=== PATIENT | female | born 1955 | race Caucasian/White ===

== ENCOUNTER 2016-07-18 00:30 | Emergency (ER) | payer OTHER ==
[~2016-07-18] VITALS: Ht 162.6 cm; Wt 156.9 kg
[2016-07-18 00:36] VITALS: BP 207/102
--- NOTE | 2016-07-18 00:45 | NUR ---
Dr. Walker evaluating patient
--- NOTE | 2016-07-18 00:49 | NUR ---
PT TAKEN TO BED 5
--- NOTE | 2016-07-18 01:13 | NUR ---
PATIENT PRESENTS TO ED WITH ENTIRE LEFT LEG PAIN . PT STATES PAIN FEELS LIKE A THROBBING SENSATION X3DAYS. PT REPORTS MED HX OF ARTHRITIS, HTN, AND ANXIETY . DENIES N/V/D; SKIN IS PINK/WARM/DRY; AAOX4 WITH EVEN AND STEADY GAIT; LUNGS CLEAR BL; HR EVEN AND REGULAR; PT DENIES ANY FEVER, CP, SOB, OR COUGH AT THIS TIME; PATIENT STATES PAIN OF 8/10 AT THIS TIME; VSS; PATIENT POSITIONED FOR COMFORT; HOB ELEVATED; BEDRAILS UP X2; BED DOWN. ER MD MADE AWARE OF PT STATUS.
[2016-07-18] MEDS ORDERED: ONDANSETRON 4 MG/2 ML VIAL IM ONE (01:25)
[2016-07-18] MEDS ORDERED: HYDROmorphone 1 MG/ML AMP IM ONE (01:25)
[2016-07-18] MEDS ORDERED: cloNIDine 0.1 MG TAB PO ONE (01:25)
[2016-07-18 03:30] VITALS: BP 165/76
--- NOTE | 2016-07-18 03:31 | NUR ---
Patient discharged with v/s stable. Written and verbal after care instructions given and explained. Patient alert, oriented and verbalized understanding of instructions. Wheel Chair Assisted with by caregiver. All questions addressed prior to discharge. ID band removed. Patient advised to follow up with PMD. Rx of TRAMADOL given. Patient educated on indication of medication including possible reaction and side effects. Opportunity to ask questions provided and answered.
== END 2016-07-18 03:31 | disposition home or self-care (01) ==
LOC: MED 00:30
DX: M17.12 Unilateral primary osteoarthritis, left knee (principal); I10 Essential (primary) hypertension
CPT/HCPCS: 96372; 99284; J1170; J2405

== ENCOUNTER 2016-07-18 22:58 | Emergency (ER) | payer OTHER ==
[~2016-07-18] VITALS: Ht 165.1 cm; Wt 154.2 kg
[2016-07-18 23:12] VITALS: BP 178/92
--- NOTE | 2016-07-18 23:23 | NUR ---
TO ER BED 2
--- NOTE | 2016-07-18 23:30 | NUR ---
61Y/F PT BIB DAUGHTER TO ED WITH C/O LT KNEE PAIN AND SWELLING, WORSENING X 3 DAYS. PT STATES HX OF HTN, ANXIETY, BILATERAL KNEE ARTHRITIS. PT TOOK TRAMADOL RX FROM ER YESTERDAY WITH NO RELIEF. PT TAKES LISINOPRIL, ATIVAN, PROZAC, NAPROXEN, VIT D AT HOME.DENIES N/V/D; SKIN IS PINK/WARM/DRY; AAOX4, UNABLE TO AMBULATE AT THIS TIME, W/C ASSIST; LUNGS CLEAR BL; HR EVEN AND REGULAR; PT DENIES ANY FEVER, CP, SOB, OR COUGH AT THIS TIME; PATIENT STATES PAIN OF 10/10 AT THIS TIME; VSS; PATIENT POSITIONED FOR COMFORT; HOB ELEVATED; BEDRAILS UP X2; BED DOWN. ER MD MADE AWARE OF PT STATUS.
[2016-07-18] MEDS ORDERED: cloNIDine 0.1 MG TAB PO ONE (23:55)
[2016-07-19] MEDS ORDERED: NACL 0.9% 1,000 ML IV ONE (00:10)
[2016-07-19] MEDS ORDERED: HYDROmorphone PFS 2 MG/ML SYR IVP ONE (00:10)
--- NOTE | 2016-07-19 00:30 | NUR ---
Patient appears to be resting comfortably in bed. Vital Signs within normal limits. Respirations even and unlabored.
[2016-07-19] MEDS ORDERED: cloNIDine 0.1 MG TAB PO ONE (02:05)
[2016-07-19 02:45] VITALS: BP 157/87
--- NOTE | 2016-07-19 02:45 | NUR ---
Patient discharged with v/s stable. Written and verbal after care instructions given and explained. Patient alert, oriented and verbalized understanding of instructions. Wheel Chair Assisted with to car. All questions addressed prior to discharge. ID band removed. Patient advised to follow up with PMD. Rx of NORCO 5/325 MG given. Patient educated on indication of medication including possible reaction and side effects. Opportunity to ask questions provided and answered.
== END 2016-07-19 02:45 | disposition home or self-care (01) ==
LOC: MED 22:58
DX: M17.0 Bilateral primary osteoarthritis of knee (principal); I10 Essential (primary) hypertension; E66.01 Morbid (severe) obesity due to excess calories; Z68.43 Body mass index [BMI] 50.0-59.9, adult
CPT/HCPCS: 36415; 80053; 85025; 85610; 85730; 93971; 96361; 96374; 99285; J1170; J7030; Q0092

== ENCOUNTER 2016-07-25 21:10 | Inpatient (IN) | payer OTHER ==
[~2016-07-25] VITALS: Ht 162.6 cm; Wt 175.5 kg
[2016-07-25 21:23] VITALS: BP 116/61
--- NOTE | 2016-07-25 21:24 | NUR ---
PT TAKEN TO BED 6
--- NOTE | 2016-07-25 21:25 | NUR ---
Dr. Walker evaluating patient at bedside.
[2016-07-25] MEDS ORDERED: NACL 0.9% 1,000 ML IV SCH (21:34)
--- NOTE | 2016-07-25 21:50 | NUR ---
X-Ray at bedside.
[2016-07-25] MEDS ORDERED: cefTRIAXone 2,000 MG in DEXTROSE 5% 100 ML IV ONE (22:35)
[2016-07-25] MEDS ORDERED: cefTRIAXone 2,000 MG VIAL ONE (23:17)
--- NOTE | 2016-07-26 02:49 | NUR ---
PT TAKEN BY [facility] TO [facility] FOR CT SCAN. MST BACKBOARD BORROWED BY EMS CREW AND TO BE RETURNED WHEN PATIENT RETURNS
--- NOTE | 2016-07-26 02:53 | NUR ---
[facility] TOOK PT TO [facility] FOR CT SCAN. PT REMAINS CONFUSED, NO DISTRESS NOTED. V/S TAKEN AND WNL. REPORT GIVEN TO MR KIM OF [facility] AND SIGNED THE TRANSFER PAPER.
--- NOTE | 2016-07-26 04:28 | NUR ---
PT RETURN FROM [place] VIA [facility]
--- NOTE | 2016-07-26 05:40 | NUR ---
PT MOVED TO BED 1
[2016-07-26] MEDS ORDERED: HYDROcodone/APAP 5/325 MG 1 TAB TAB PO PRN ×2 (05:50→06:00)
[2016-07-26] MEDS ORDERED: LORazepam 2 MG/ML VIAL IVP PRN (05:50)
[2016-07-26] MEDS ORDERED: ONDANSETRON 4 MG/2 ML VIAL IVP PRN ×2 (05:50→06:00)
[2016-07-26] MEDS ORDERED: ACETAMINOPHEN 325 MG TAB PO PRN ×2 (05:50→06:00)
[2016-07-26] MEDS ORDERED: MORPHINE SULFATE 2 MG/ML SYR IVP PRN ×2 (05:50→06:00)
--- NOTE | 2016-07-26 05:50 | NUR ---
ADMITTED A PATIENT FROM ER, TRANSPORTED VIA GURNEY ACCOMPANIED BY ER NURSE AND FAMILY MEMBER. PATIENT IS CONFUSED, V/S CHECKED AND STABLE. MRSA SWAB DONE. FAMILY MEMBER PRESENT AT BEDSIDE. IV SITE IS PATENT AND INTACT. WILL ENDORSE TO DAY SHIFT NURSE.
[2016-07-26] MEDS ORDERED: FUROSEMIDE 40 MG/4 ML VIAL IVP ONE (05:55)
[2016-07-26] MEDS ORDERED: VANCOMYCIN PER PHARMACY MC PRN ×2 (05:55→06:00)
[2016-07-26] MEDS ORDERED: FUROSEMIDE 40 MG/4 ML VIAL IVP SCH (05:55)
--- NOTE | 2016-07-26 06:00 | NUR ---
Patient will be admitted to care of DR SHAIKH. Admited to TELEMETRY. Will go to room 115. Belongings list completed. Report to PHILLY CHASE.
--- NOTE | 2016-07-26 07:35 | NUR ---
ENDORSED REPORT TO RENA KINGSLEY FOR CONTINUITY OF CARE. PT IS STABLE.
--- NOTE | 2016-07-26 07:36 | NUR ---
RECEIVED PT FROM THE OFFICE CLEANER NURSE AT BEDSIDE. SHE IS MY ADMIT FOR THIS MORNING. PT ARRIVED ON THE UNIT 0550. SHE IS ALTERED MENTAL STATUS. TWO DAUGHTERS AT BEDSIDE. SHE IS TRYING TO TAKE OFF HER GOWN, REMOVE THE TELE MONITOR, AND HER BLANKETS. PT IS VERY CONFUSED. NOTED THE IV ON R HAND 22G SL. NO FLUIDS, NOT IV PUMP IN THE ROOM. NOTED THAT SHE HAS SOME OLD SCARS AND SCAB ON HER BODY. SHE DID HAVE HER L LOWER LEG WRAPPED WITH SHANICE BANDAGE. 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 NOT WARM TO TOUCH. NO REDNESS NOTED. PT HAS A NC WHICH SHE WAS TAKING OFF. O2 AT 2L. SHE ALSO HAS A BEE CATH. DARK AYAKA URINE ABOUT 20MLS IN THE BAG. SHE IS SPEAKING THAI BUT GARBLED. EVEN THE DAUGHTERS CAN NOT UNDERSTAND WHAT SHE IS SAYING. SHE C/O OF PAIN IN HER R SHOULDER. XRAYS DONE IN ER BUT NO FRACTURE. ONLY SCREAMS WHEN ARM IS MOVED. I INTRODUCED MYSELF TO THE FAMILY. UPDATED THE BOARD. WILL BE BACK TO CONTINUE TO MONITOR PT.
--- NOTE | 2016-07-26 07:40 | NUR ---
CRITICAL LABS FOR PT: SODIUM AT 124 AND WBC AT 34.3. PAGED .
[2016-07-26 08:36] VITALS: BP 121/64
--- NOTE | 2016-07-26 08:47 | NUR ---
DR. WOODWARD RETURNED CALL. NOTIFIED HER ABOUT THE CRITICAL LABS. SHE IS ON HER WAY IN.
[2016-07-26] MEDS ORDERED: VANCOMYCIN 2,000 MG in DEXTROSE 5% 500 ML IV SCH (09:00)
--- NOTE | 2016-07-26 09:00 | NUR ---
DR. WOODWARD IS HERE TO EVALUATE PT. PT STILL VERY CONFUSED, SPEAKING NON-SENSE, TRYING TO REMOVE GOWN, TELE MONITOR.
--- NOTE | 2016-07-26 09:07 | NUR ---
PATIENT HAS BEEN SCREENED AND CATEGORIZED HIGH NUTRITION RISK. PATIENT WILL BE SEEN WITHIN 1-2 DAYS OF ADMISSION. 07/26/16-07/27/[address]
--- NOTE | 2016-07-26 09:30 | NUR ---
ADMINISTERED 1 MG OF ATIVAN, VANCO, AND 500ML BAG OF NS, AND HEPARIN. PT TOLERATED WELL. ORDERED A URINE ANALYSIS. NOT ENOUGH URINE FROM BEE. WILL CLAMP AND RETRY 0BTAINING A SAMPLE.
[2016-07-26] MEDS: LORazepam 2 MG/ML VIAL IVP PRN (10:00)
[2016-07-26] MEDS: NACL 0.45% 1,000 ML IV SCH ×2 (10:05→23:25)
[2016-07-26 12:00] VITALS: BP 114/51
--- NOTE | 2016-07-26 13:10 | NUR ---
DR. OSCAR, NEPHRO CONSULT CALLED REQUESTING INFORMATION ON THE PT. GAVE HIM INFORMATION, HE GAVE ORDERS FOR FLUIDS B0LUS, UA, URINE CULTURE AND URINE RANDOM SODIUM LEVEL. WILL PUT IN THE ORDERS.
--- NOTE | 2016-07-26 13:25 | NUR ---
CALLED LAB. NOT ENOUGH URINE SAMPLE TO DO THE RANDOM URINE SODIUM LEVEL. THEY DID THE UA, URINE CULTURE, AND DRUG SCREEN.
--- NOTE | 2016-07-26 13:52 | NUR ---
COLLECTED ANOTHER URINE SAMPLE FOR THE RANDOM URINE SODIUM LEVEL. WILL TAKE TO THE LAB Addendum: 07/26/16 at 1353 by La Beltran RN PT IS SOUND ASLEEP. FAMILY AT BEDSIDE. NO SIGNS OF DISTRESS. WILL CONTINUE TO MONITOR PT.
--- NOTE | 2016-07-26 14:01 | NUR ---
CM NOTE CONCURRENT REVIEW SENT TO [facility] FAX# [phone] PH# LETHA [phone]
--- NOTE | 2016-07-26 14:42 | NUR ---
07/26/16 RD INITIAL ASSESSMENT COMPLETED PLEASE REFER TO NUTRITION ASSESSMENT UNDER CARE ACTIVITY FOR ESTIMATED NUTRITIONAL NEEDS. RD RECOMMENDATIONS: 1. CONTINUE REGULAR DIET PER MD 2. SHOULD PT PO INTAKES IMPROVE TO >50% PER MEAL, CONSIDER ADDING RENAL FEATURES TO PT DIET PT WITH ALTERED RENAL LAB VALUES 3. RD WILL F/U 3-5 DAYS; MODERATE RISK. GWENDOLYN JIMÉNEZ, RD
--- NOTE | 2016-07-26 15:19 | NUR ---
PT STILL SOUNDLY ASLEEP. PT'S FAMILY AT BEDSIDE. NO SIGNS OF DISTRESS. NS AT 75ML/HR INFUSING. 500ML BOLUS WAS GIVEN EARLIER PER MD ORDERS.
[2016-07-26 16:00] VITALS: BP 124/53
--- NOTE | 2016-07-26 16:58 | NUR ---
LAB CALLED WITH CRITICAL. BLOOD CULTURE: GRAM POSITIVE COCCI AND CLUSTERS. PAGED DR. WOODWARD. DR. HOWELL ADVENTURE GUIDE.
--- NOTE | 2016-07-26 17:54 | NUR ---
SPOKE TO DR. LYNDA LUNA. BLOOD CULTURE REPORT. RESUME WITH TREATMENT. NO OTHER ORDERS GIVEN AT THIS TIME.
--- NOTE | 2016-07-26 19:10 | NUR ---
ENDORSED PT TO THE PROJECT MANAGER INTERIOR DESIGN NURSE AT BEDSIDE FOR CONTINUITY OF CARE. PT IS C/O PAIN. PROJECT MANAGER INTERIOR DESIGN NURSE WILL COME BACK AND REASSESS PT.
--- NOTE | 2016-07-26 19:30 | NUR ---
RECEIVED PT IN STABLE CONDITION FROM AM NURSE. PT IS ASLEEP BUT WAKE UP WHEN NAME CALLED ANS FAMILY TALKED TO HER. NO ACUTE RESPIRATORY DISTRESS NOTED ON O22L/NC.O2 SAT 94%. ON TELE MONITOR.-SR. BEDREST DUE TO GEN WEAKNESS. HAS IVF INFUSING WELL ON THE RT HAND #22. CLEAR AND PATENT. PT IS OBESE. VITAL SIGNS TAKEN AND STABLE. HAS BEE CATHETER TI GRAVITY DRAINING SMALL AMOUNT URINE DARK YELLOW IN COLOR. PLAN OF CARE DISCUSSED TO MEMBERS OF FAMILY WHO ARE AT BEDSIDE. VERBALIZED UNDERSTANDING. CALL LIGHT PLACED WITHIN EASY REACH. BED ON LOW POSITION.SIDE RAILS UP X2 . WILL CONTINUE TO MONITOR.
[2016-07-26 19:59] VITALS: BP 139/70
--- NOTE | 2016-07-26 20:00 | NUR ---
CHECKED WITH PT . NO DISTRESS NOTED. ON O22L/NC . O2 SAT 95%.
[2016-07-26] MEDS: MORPHINE SULFATE 2 MG/ML SYR IVP PRN (20:10)
--- NOTE | 2016-07-26 20:43 | NUR ---
DR. OSCAR CALLED AND FOLLOW UP BMP ORDERED SUPPOSED TO STAT. CALLED LAB AND SAID WILL DO IT ON BLOOD TAKEN 1899.
--- NOTE | 2016-07-26 21:19 | NUR ---
PAGED DR. OSCAR FOR BMP RESULT CRITICAL NA LEVEL 123. CALLED BACK MADE AWARE . NO NEW ORDERS .
--- NOTE | 2016-07-26 21:30 | NUR ---
REPOSITIONED FOR COMFORT. NO DISTRESS NOTED. WILL CONTINUE TO MONITOR.
--- NOTE | 2016-07-26 22:00 | NUR ---
PT O2 SAT ON 022L/NC 97%. NO DISTRESS NOTED. FAMILY MEMBER AT BEDSIDE.
[2016-07-27] VITALS (7 sets, daily range): BP systolic 106–150; BP diastolic 44–72
--- NOTE | 2016-07-27 00:40 | NUR ---
DR. SIERRA CAME AND SEEN PT CONSULT . WITH NEW ORDER.
[2016-07-27] MEDS: MORPHINE SULFATE 2 MG/ML SYR IVP PRN ×3 (02:22→20:51)
--- NOTE | 2016-07-27 03:24 | NUR ---
CALLED PHARMACY REGARDING MAXIPIME ORDER. PHARMACIST SAID THIS WILL START AT 0900 AM TODAY.
[2016-07-27] MEDS ORDERED: VANCOMYCIN 1,000 MG VIAL ONE (03:55)
--- NOTE | 2016-07-27 04:00 | NUR ---
VITAL SIGNS STABLE . O2 SAT 0N O 2L/NC IS 95%. NO ACUTE RESPIRATORY DISTRESS NOTED. LUNG SOUNDS CLEAR.
[2016-07-27] MEDS: NACL 0.45% 1,000 ML IV SCH (04:34)
--- NOTE | 2016-07-27 05:00 | NUR ---
SLEEPING ATT HIS TIME. NO S/S OF ANY DISCOMFORT NOR DISTRESS NOTED. DAUGHTER AT BEDSIDE. WILL CONTINUE TO MONITOR.
[2016-07-27] MEDS ORDERED: VANCOMYCIN 1,750 MG in DEXTROSE 5% 500 ML IV SCH (06:00)
--- NOTE | 2016-07-27 06:58 | NUR ---
MADE ROUNDS , CHECKED ON PT. SLEEPING. WITH O22L/NC, O2 SAT 95%. DAUGHTER AT BEDSIDE.
--- NOTE | 2016-07-27 07:25 | NUR ---
RECEIVED REPORT FROM RENA MCKEON AT PT BEDSIDE. PT RESTING IN BED, AWAKE TO NAME. DAUGHTER AT BEDSIDE. PT IS AAOX2, ALTERED. ON O2 2L NC. PT HAS PAIN TO ARMS AND LEGS, WILL MEDICATE ORDERED. PT HAS ABX RUNNING, NO S/S OF ACUTE DISTRESS. BED IN LOWEST POSITION. CALL LIGHT WITHIN REACH. SAFETY MEASURES ENSURED.
--- NOTE | 2016-07-27 07:35 | NUR ---
PAGED BOTH DR. OSCAR FOR CRITICAL LABS NA 123, BUN 64 AND CREAT 3.[address] WOODWARD FOR WBC 38.7 -STILL WAITING FOR CALL BACK. ENDORSED PT AND THE CRITICAL LABS TO RENA GUERRERO . MADE HIM AWARE THAT STILL WAITING FOR CALL BACK.
--- NOTE | 2016-07-27 07:36 | NUR ---
SPOKE WITH DR. OSCAR REGARDING CRITICAL LABS. NEW ORDERS RECEIVED. WILL FOLLOW UP WITH .
--- NOTE | 2016-07-27 07:40 | NUR ---
SPOKE WITH DR. WOODWARD REGARDING WBC 38.[address] BRITTON CHANGE OF ABX. WILL CONTINUE TO MONITOR.
[2016-07-27] MEDS ORDERED: NACL 0.9% 1,000 ML IV SCH (07:50)
[2016-07-27] MEDS ORDERED: ASPIRIN 81 MG TAB.CHEW PO SCH (09:00)
[2016-07-27] MEDS: ASPIRIN 81 MG TAB.CHEW PO SCH (09:09)
[2016-07-27] MEDS: CEFEPIME 1,000 MG in DEXTROSE 5% 50 ML IV SCH ×2 (09:14→20:38)
--- NOTE | 2016-07-27 10:00 | NUR ---
PT RESTING IN BED. FAMILY AT BEDSIDE. REFUSED BREAKFAST, ATE SOUP FROM HOME BROUGHT BY FAMILY.
--- NOTE | 2016-07-27 12:00 | NUR ---
PATIENT HAD ECHO AT BEDSIDE. NO S/S OF ACUTE DISTRESS. LETHARGIC, EASILY AWAKENS.
--- NOTE | 2016-07-27 13:00 | NUR ---
PATIENT SEEN BY DR. WHIPPLE, NEW ORDERS RECEIVED.
--- NOTE | 2016-07-27 13:20 | NUR ---
PATIENT SEEN BY DR. OSCAR. MADE AWARE OF TODAYS OUTPUT WELL YESTERDAYS. WILL CONTINUE TO MONITOR WITH REPEAT LABS IN AFTERNOON. PATIENT TO HAVE 150ML BOLUS AND CONTINUED RATE OF 100ML/HR AT THIS TIME. PATIENT RESTING IN BED, FAMILY AT BEDSIDE. LETHARGIC. ALERT TO NAME, PLACE, UNABLE TO GIVE PROPER DATE/TIME. IV SITE PATENT AND INTACT. NO S/S OF ACUTE DISTRESS.
[2016-07-27] MEDS ORDERED: SODIUM CHLORIDE 1 GM TAB PO SCH (13:37)
--- NOTE | 2016-07-27 14:56 | NUR ---
CM NOTE CONCURRENT REVIEW SENT TO [facility] FAX# [phone] PH# LETHA PH# [phone]
--- NOTE | 2016-07-27 16:02 | NUR ---
PATIENT RESTING IN BED. NO S/S OF ACUTE DISTRESS. FAMILY AT BEDSIDE. ALERT TO NAME AND PLACE. WILL CONTINUE TO MONITOR.
--- NOTE | 2016-07-27 17:30 | NUR ---
PT SLEEPING FAMILY AT BEDSIDE. NS RATE HELD ORDERED BY DR. LY. TO BE MADE AWARE WHEN LAB RESULTS COME BACK. WILL CONTINUE TO MONITOR. PATIENT URINE OUTPUT STEADILY 80-100/HR FROM [id number].
--- NOTE | 2016-07-27 18:17 | NUR ---
DR. LEE FIELD SALES TRAINER PAGED, NOTIFIED OF CRITICAL LAB NA 120. ALSO MADE AWARE OF BUN/CREAT LEVEL AND URINE OUTPUT. MD TO SPEAK WITH DR. LY AND CALL BACK.
[2016-07-27] MEDS: NACL 3% 100 ML IV SCH ×2 (19:08→21:16)
--- NOTE | 2016-07-27 19:28 | NUR ---
RECEIVED REPORT FROM RENA GUERRERO, AT BEDSIDE. INITIAL ASSESSMENT AND BODY CHECK DONE. PATIENT AA TO SELF/FAMILY/PLACE, BUT STILL HAS EPISODE OF CONFUSION AND ALTERED MENTAL STATUS, EASILY AROUSED AND ABLE TO FOLLOW SIMPLE COMMAND AND COMMUNICATE. PATIENT CURRENTLY SITTING UP ON THE BED. NO S/S OF DISTRESS OR SOB NOTED. SKIN WARM/DRY TO TOUCH WITH NORMAL COLOR AND INTACT. DISCUSSED PLAN OF CARE, PAIN MANAGEMENT AND MEDICATION REGIMEN WITH FAMILY AND ALL VERBALIZED UNDERSTANDING. PLACED PATIENT ON SAFETY/FALL/SEIZURE PRECAUTIONS AND WILL CONTINUE TO MONITOR. CALL LIGHT LEFT WITHIN REACH AND FAMILY AT BEDSIDE.
--- NOTE | 2016-07-27 19:32 | NUR ---
ENDORSED PLAN OF CARE TO RENA ROCK AT PT BEDSIDE. NO S/S OF ACUTE DISTRESS.
[2016-07-27] MEDS: SODIUM CHLORIDE 1 GM TAB PO SCH (20:41)
[2016-07-27] MEDS: LORazepam 2 MG/ML VIAL IVP PRN (20:51)
--- NOTE | 2016-07-27 20:55 | NUR ---
DR. SIERRA HERE TO REVIEW PATIENT'S CHART AND WILL FF-UP WITH NEW ORDER.
--- NOTE | 2016-07-27 21:34 | NUR ---
ADMINISTERED DUE AND PRN MEDICATIONS FOR C/O ANXIETY AND BLE PAIN. PATIENT TOLERATED MEDICATIONS WELL. KEPT PATIENT IN COMFORTABLE POSITION/WARM AND WILL CONTINUE TO MONITOR. FAMILY AT BEDSIDE.
[2016-07-28] VITALS: BP 126/52
[2016-07-28] MEDS ORDERED: NACL 3% 100 ML IV ONE (00:20)
--- NOTE | 2016-07-28 01:00 | NUR ---
PATIENT RESTED COMFORTABLY IN BED, EASILY AROUSED AND REMAINED IN STABLE CONDITION. WILL CONTINUE TO MONITOR.
[2016-07-28] MEDS: MORPHINE SULFATE 2 MG/ML SYR IVP PRN ×3 (02:11→22:15)
[2016-07-28] MEDS: LORazepam 2 MG/ML VIAL IVP PRN ×2 (02:19→21:15)
--- NOTE | 2016-07-28 02:20 | NUR ---
ASSISTED PATIENT TO REPOSITION AND OFFLOADED PRESSURE AREAS. THEN ADMINISTERED PRN MEDICATIONS FOR C/O LEFT LEG PAIN AND ANXIETY. WILL CONTINUE TO MONITOR FOR EFFECTIVENESS.
[2016-07-28 04:00] VITALS: BP 125/59
--- NOTE | 2016-07-28 04:20 | NUR ---
PATIENT RESTED QUIETLY IN BED WITH STABLE V/S. PAIN SYMPTOM HAS BEEN STABILIZED AND UNDER CONTROL AFTER POST-MEDICATION. WILL CONTINUE TO MONITOR.
--- NOTE | 2016-07-28 07:28 | NUR ---
ENDORSED PLAN OF CARE TO RENA WHITEHEAD, AT BEDSIDE. PATIENT REMAINED IN STABLE CONDITION WITHOUT APPARENT DISTRESS NOTED.
--- NOTE | 2016-07-28 07:29 | NUR ---
RECEIVED REPORT FROM RUBBER COMPOUNDER NURSE. DAUGHTER AT BEDSIDE. PT IS AAOX2-3, WITH PERIODS OF FORGETFULNESS, PT DENIES PAIN/DISCOMFORT AT THIS TIME. NON PITTING EDEMA TO BILATERAL EXTREMITIES NOTED. BEE CATHETER INTACT AND DRAINING VIA GRAVITY. PT IS ON 2 L OF O2 VIA NC. CALL LIGHT WITHIN REACH. WILL CONTINUE TO MONITOR.
[2016-07-28 08:00] VITALS: BP 137/61
[2016-07-28] MEDS: CEFEPIME 1,000 MG in DEXTROSE 5% 50 ML IV SCH ×2 (08:54→21:16)
[2016-07-28] MEDS: SODIUM CHLORIDE 1 GM TAB PO SCH ×2 (08:54→21:15)
[2016-07-28] MEDS: ASPIRIN 81 MG TAB.CHEW PO SCH (08:55)
--- NOTE | 2016-07-28 09:06 | NUR ---
PT LINDA MEDS WELL.
--- NOTE | 2016-07-28 10:29 | NUR ---
ORDERS RECEIVED PER DR. OSCAR.
--- NOTE | 2016-07-28 10:39 | NUR ---
PT C/O PAIN, MEDICATED PRESCRIBED.
[2016-07-28] MEDS ORDERED: SODIUM CHLORIDE 1 GM TAB PO SCH (11:01)
--- NOTE | 2016-07-28 11:36 | NUR ---
VITAL SIGNS REMAIN STABLE.
[2016-07-28 12:00] VITALS: BP 137/75
--- NOTE | 2016-07-28 13:30 | NUR ---
ALL NEEDS MET AT THIS TIME. NO S/SX OF DISTRESS NOTED.
--- NOTE | 2016-07-28 13:31 | NUR ---
KATHRYN MONAE OF [facility] MADE AN ONSITE VISIT AT 10:30 AM TODAY AND VERBAL UPDATE ABOUT THE PATIENT GIVEN. PER STEEL FINISHER JOHN OF [facility] PH# [phone], THEY DON'T HAVE ANY TELEMETRY OR MED SURG BED AVAILABLE RIGHT NOW. FAXED HER THE INFORMATION SHE REQUESTED FAX# [phone] IN CASE A BED WILL BE AVAILABLE LATER. SPOKE WITH CARLTON OF [facility] PH# [phone] AND THEY SAID THEY DON'T HAVE ANY AVAILABLE BED RIGHT NOW FOR THE PATIENT. GAVE THEM THE INFORMATION REGARDING THE PATIENT THAT THEY NEED IN CASE A BED WILL BE AVAILABLE LATER. SPOKE WITH STEEL FINISHER CHINYERE OF [facility] PH# [phone] AND SHE SAID THEY DON'T HAVE ANY AVAILABLE BED RIGHT NOW. SPOKE WITH KATHRYN MONAE OF [facility] AND SHE SAID THE PATIENT'S CHARGE NURSE ON THE FLOOR SHOULD CALL [facility], [facility], [facility] EVERY 12 HOURS TO FOLLOW UP ON BED STATUS, SO THE PATIENT CAN BE TRANSFERRED TO HIGHER LEVEL OF CARE SOON A BED IS AVAILABLE AND SET UP TRANSPORT, MED TRANSPORT AUTH# [id number]. CHARGE NURSE CHENG EXT [phone] AWARE.
--- NOTE | 2016-07-28 15:04 | NUR ---
PT IN TO SEE PT, SITTING ON EDGE OF BED. WILL CONTINUE TO MONITOR.
[2016-07-28 16:00] VITALS: BP 155/82
--- NOTE | 2016-07-28 16:28 | NUR ---
YOSELIN INSTALLED BY PHYS THERAPY.
--- NOTE | 2016-07-28 18:43 | NUR ---
SPOKE TO JOHN AT [facility], SHE STATES THERE ARE NO BEDS AVAILABLE FOR THE PT RIGHT NOW. SPOKE TO HARPER FROM [facility], SHE STATED TO CALL BACK IN 30 MINS BECAUSE THEY WERE IN REPORT. SPOKE TO CIPRIANO FROM [facility]. NO BEDS AVAILABLE.
--- NOTE | 2016-07-28 19:36 | NUR ---
ENDORSED TO SAMPLE DYE MIXER NURSE FOR CONTINUITY OF CARE IN STABLE CONDITION.
--- NOTE | 2016-07-28 19:36 | NUR ---
RECEIVED REPORT FROM DAY SHIFT NURSEMINDY RN. PATIENT IS ALERT AND AWAKE, WITH FAMILY MEMBER AT BEDSIDE, DENIES PAIN AT THIS TIME. ON NASAL CANNULA 2LPM, HAS NO S/S OF RESPIRATORY DISTRESS/DISCOMFORT NOTED. IV SITE IS INFILTRATED, WILL REINSERT A NEW IV, BEE CATHETER IN PLACED, INTACT AND INDWELLING WELL. PLAN OF CARE DISCUSSED, VERBALIZED UNDERSTANDING. SAFETY MEASURES CHECKED, CALL LIGHT WITHIN REACH. WILL CONTINUE TO MONITOR.
[2016-07-28] MEDS ORDERED: NACL 0.9% 1,000 ML IV SCH (19:40)
[2016-07-28 20:00] VITALS: BP 157/61
--- NOTE | 2016-07-28 21:38 | NUR ---
DUEN MEDS GIVEN. PATIENT TOLERATED MEDS WELL. PT WAS CONFUSED ADMINISTERED ATIVAN PER MD ORDERED.
--- NOTE | 2016-07-28 21:50 | NUR ---
RECEIVED A CALL FROM DR. OSCAR, UPDATED PATIENT'S CONDITION AND RECEIVED A NEW ORDERS TO DO NOT GIVE 3% AND DISCONTINUE, GIVE 250 ML OF FREE WATER, REMOVE FREE WATER RESTRICTION AND DISCONTINUE SALT TABLETS ORDER.
--- NOTE | 2016-07-28 22:08 | NUR ---
RECEIVED A CALL FROM DR. OSCAR. RECEIVED A NEW ORDER OF D5 WATER 1000ML RUNNING AT 100ML/HR, WILL CARRY OUT MD ORDER.
[2016-07-28] MEDS: DEXTROSE 5% 1,000 ML IV SCH (22:28)
--- NOTE | 2016-07-28 23:47 | NUR ---
CALLED LABORATORY AND SPOKE WITH ISABEL TO FOLLOW-UP MD ORDER FOR BLOOD DRAW AT 12 MIDNIGHT.
[2016-07-29] VITALS (8 sets, daily range): BP systolic 147–165; BP diastolic 60–76
--- NOTE | 2016-07-29 00:44 | NUR ---
RECEIVED A CALL FROM DR OSCAR. RECEIVED A NEW ORDER TO INCREASE IVF RATE TO 150ML/HR AND GIVE A FREE WATER OF 250ML TO TH PT. WILL CARRY OUT NEW ORDERS.
[2016-07-29] MEDS: DEXTROSE 5% 1,000 ML IV SCH ×4 (01:00→14:54)
--- NOTE | 2016-07-29 01:00 | NUR ---
INCREASED IVF RATE TO 150 ML/HR PER MD ORDERED VIA PHONE. EMPTIED BEE CATHETER BAG OF 1400ML OF LIGHT AYAKA URINE COLOR.
--- NOTE | 2016-07-29 03:44 | NUR ---
CALLED [facility]# [phone] AND SPOKE WITH PATTY FERNANDEZ ADMITTING DEPT. TO FOLLOW-UP PATIENT'S BED. PUT ON ON HOLD FOR 30 MIN. AND DID NOT GET INFORMATION FROM HER.
--- NOTE | 2016-07-29 05:02 | NUR ---
CALLED [facility] AND SPOKE WITH SHELBY ENVIRONMENTAL PROPERTY ASSESSOR TO FOLLOW-UP PATIENT'S BED. ACCORDING TO HER, THEY DON'T HAVE TELE BED BUT THEY HAVE MED-SURG BED.
--- NOTE | 2016-07-29 05:14 | NUR ---
CALLED TO [facility] PHONE# [phone] AND SPOKE WITH JOSE ANTONIO DE SOUZAJIG BORER AND THEY DON'T HAVE AVAILABLE BED AT THIS TIME.
--- NOTE | 2016-07-29 06:18 | NUR ---
SPOKE WITH DR OSCAR VIA PHONE. UPDATED PT'S CONDITION AND RECEIVED NEW ORDER, BMP AT 0800. Addendum: 07/29/16 at 0624 by Vadim Ludwig RN CONTINUE IVF RATE AT 150 ML/HR PER DR OSCAR VIA PHONE.
--- NOTE | 2016-07-29 07:41 | NUR ---
ENDORSED REPORT TO DAY SHIFT NURSE FOR CONTINUITY OF CARE. PT IS IN STABLE.
--- NOTE | 2016-07-29 07:42 | NUR ---
RECEIVED PT FROM RENA FRAGA AWAKE AND LYING ON BED, AAOX2 WITH PERIODS OF CONFUSION. WITH O2 AT 2LPM VIA NC, NO S/S OF RESPIRATORY DISTRESS OR DISCOMFORT. WITH IV ACCESS ON LEFT UPPER ARM INFUSING FLUIDS WELL. SKIN IS INTACT, WITH BLE 2T EDEMA. WITH BEE CATHETER DRAINING YELLOW URINE. PT HAS OVERHEAD TRAPEZE. WITH RELATIVES AT BEDSIDE. DISCUSSED PLAN OF CARE, REINFORCEMENT NEEDED. CALL LIGHT WITHIN REACH, WILL CONTINUE TO MONITOR.
[2016-07-29] MEDS: SODIUM CHLORIDE 1 GM TAB PO SCH (08:06)
--- NOTE | 2016-07-29 09:20 | NUR ---
SPOKE TO DR. OSCAR, WILL CARRY OUT NEW ORDERS.
[2016-07-29] MEDS: ASPIRIN 81 MG TAB.CHEW PO SCH (09:26)
--- NOTE | 2016-07-29 09:34 | NUR ---
DUE MEDS GIVEN, PT TOLERATED WELL. ALL NEEDS MET AT THIS TIME. WILL CONTINUE TO MONITOR.
[2016-07-29] MEDS: cefTRIAXone 2,000 MG in DEXTROSE 5% 100 ML IV SCH (10:06)
[2016-07-29] MEDS: MORPHINE SULFATE 2 MG/ML SYR IVP PRN ×2 (10:06→21:45)
--- NOTE | 2016-07-29 11:02 | NUR ---
SPOKE TO DR. OSCAR, TO CARRY OUT NEW ORDER
--- NOTE | 2016-07-29 11:45 | NUR ---
PAGED DR. WOODWARD FOR ELEVATED BLOOD PRESSURE. WILL AWAIT FOR ORDERS
--- NOTE | 2016-07-29 12:14 | NUR ---
PT VOMITED APPROXIMATELY 300 ML OF YELLOWISH EMESIS, ZOFRAN GIVEN. WILL MONITOR.
--- NOTE | 2016-07-29 12:28 | NUR ---
SPOKE TO DR. WOODWARD, GAVE ORDERS OF HYDRALAZINE. WILL RECHECK BP
[2016-07-29] MEDS ORDERED: hydrALAZINE 20 MG/ML VIAL IVP PRN (12:35)
--- NOTE | 2016-07-29 13:10 | NUR ---
PT ASLEEP BUT EASILY AWAKEN. SPOKE TO DR. OSCAR REGARDING BMP RESULTS, WILL ORDER ANOTHER BMP FOR 1600.
--- NOTE | 2016-07-29 14:56 | NUR ---
PT ASLEEP, NO S/S OF RESPIRATORY DISTRESS. DAUGHTER AT BEDSIDE. CALL LIGHT WITHIN REACH, WILL CONTINUE TO MONITOR.
--- NOTE | 2016-07-29 15:30 | NUR ---
CALLED [facility], SPOKE WITH [facility] BED CONTROL COORDINATOR NO TELE BED AVAILABLE BUT ( SHE RECOMMENDED PATIENT HAS TO GO TO TELE BED FOR HIGHER LEVEL OF CARE.
[2016-07-29] MEDS ORDERED: DEXTROSE 5% 1,000 ML IV SCH ×2 (15:39→19:00)
--- NOTE | 2016-07-29 15:56 | NUR ---
CALLED [facility] SPOKE WITH [facility] BED COORDINATOR SHE NEEDED ACCEPTING DR TO CALL THEM IN ORDER TO GET A BED . PAGED DR WOODWARD AT THIS TIME.
--- NOTE | 2016-07-29 15:58 | NUR ---
FAXED ALL PATIENT INFORMATION TO [facility] AND [facility] DR WOODWARD.
--- NOTE | 2016-07-29 16:54 | NUR ---
NOTIFIED DR. OSCAR REGARDING BMP RESULTS. WILL CARRY OUT NEW ORDERS
--- NOTE | 2016-07-29 18:01 | NUR ---
PT AWAKE WITH RELATIVES AT BEDSIDE. NO S/S OF DISTRESS. ALL NEEDS MET, WILL CONTINUE TO MONITOR.
--- NOTE | 2016-07-29 19:39 | NUR ---
ENDORSED PT TO LINDA, RN IN STABLE CONDITION FOR CONTINUITY OF CARE.
--- NOTE | 2016-07-29 19:45 | NUR ---
RECEIVED PT IN STABLE CONDITION FROM AM NURSE. AWAKE,ALERT AND ORIENTED X3. BEDREST. ON TELE MONITOR. O2 2L/NC. AND IVF INFUSING WELL ON THE LT UPPER AM #24. CLEAR AND PATENT. PT C/O NAUSEA AND VOMITING . WILL MEDICATE ORDERED. DR. OSCAR JUST CAME AND CHECK ON PT. IVF TO STOP AT 1999. THEN BLOOD DRAW BMP AT 2100. WILL CALL DR. OSCAR FOR RESULT. FAMILY VERBALIZED UNDERSTANDING OF THE PLAN OF CARE. CALL LIGHT PLACED WITHIN EASY REACH. ENCOURAGED PT /FAMILY TO CALL FOR ANY ASSISTANCE. WILL CONTINUE TO MONITOR.
--- NOTE | 2016-07-29 22:00 | NUR ---
LT HIP FOUND TO HAVE THICKNESS PINK TO RED SKIN AREA 3CM X2.5 CM . SKIN INTACT. PICTURE TAKEN.
--- NOTE | 2016-07-29 22:34 | NUR ---
CALLED DR. OSCAR FOR RESULT OF BMP TONIGHT. MADE AWARE . TO RECHECK NA @0100 AND CALL FOR RESULT.
[2016-07-30] VITALS (7 sets, daily range): BP systolic 116–165; BP diastolic 54–82
[2016-07-30] MEDS: LORazepam 2 MG/ML VIAL IVP PRN ×2 (00:34→18:12)
--- NOTE | 2016-07-30 00:35 | NUR ---
NEW IC ACCESS STARTED BY ER NURSE ON THE RT AC#22. CLEAR AND PATENT
--- NOTE | 2016-07-30 00:40 | NUR ---
CALLED [facility] THEY DON'T HAVE BED AT THIS TIME.
[2016-07-30] MEDS ORDERED: DEXTROSE 5% 1,000 ML IV SCH (01:00)
--- NOTE | 2016-07-30 02:17 | NUR ---
CALLED DR. OSCAR FOR REPEAT NA RESULT 131. MADE AWARE. NO NEW ORDER MADE.
--- NOTE | 2016-07-30 06:50 | NUR ---
NO VOMITING NOTED DURING THE NIGHT.
--- NOTE | 2016-07-30 07:10 | NUR ---
ENDORSED PT IN STABLE CONDITION TO AM NURSE.
--- NOTE | 2016-07-30 07:18 | NUR ---
RECEIVED REPORT FROM RENA MCKEON. PT IS ASLEEP BUT EASILY AWAKEN, WITH O2 2LPM NC, NO S/S OF RESPIRATORY DISTRESS OR DISCOMFORT, AOX3 WITH PERIODS OF CONFUSION, WITH RELATIVES AT BEDSIDE. WITH IV ACCESS ON RIGHT AC 22G PATENT AND INTACT. WITH BEE CATHETER DRAINING YELLOWISH URINE. DISCUSSED PLAN OF CARE, PT VERBALIZED UNDERSTANDING BUT REINFORCEMENT NEEDED. CALL LIGHTW ITHIN REACH, WILL CONTINUE TO MONITOR.
--- NOTE | 2016-07-30 08:10 | NUR ---
DR WOODWARD AT NURSES' STATION
[2016-07-30] MEDS: ASPIRIN 81 MG TAB.CHEW PO SCH (08:11)
--- NOTE | 2016-07-30 08:18 | NUR ---
DUE MEDS GIVEN, PT TOLERATED WELL. BP 165/82, APRESOLINE GIVEN IVP. WILL REASSESS BP.
--- NOTE | 2016-07-30 09:11 | NUR ---
BP REASSESSED, 148/72. DR. WOODWARD AT BEDSIDE. NO COMPLAINTS AT THIS TIME. CALL LIGHT WITHIN REACH, WILL CONTINUE TO MONITOR.
--- NOTE | 2016-07-30 09:44 | NUR ---
NOTIFIED DR. OSCAR ABOUT CANCELLED BMP AT 9AM, HE STATED IT IS OKAY AND JUST HAVE DAILY BMPS.
--- NOTE | 2016-07-30 09:45 | NUR ---
PER DR. CRISSY DESOUZA LACTIC ACID TEST
--- NOTE | 2016-07-30 10:01 | NUR ---
DR WHIPPLE CALLED, NO NEW ORDERS.
[2016-07-30] MEDS: cefTRIAXone 2,000 MG in DEXTROSE 5% 100 ML IV SCH (10:14)
--- NOTE | 2016-07-30 10:31 | NUR ---
DR WOODWARD IN THE UNIT STATED PER RANDY PERALTA [facility] HAS A BED ,CALLED [facility] SPOKE WITH RIPPER OPERATOR JERRY NO TELE OR MS SURGE BED AVAILABLE AT THIS TIME , SHE WILL CALL IF SHE HAS ANY BED AVAILABLE. NOTIFIED DR WOODWARD AT THIS TIME. AND CALLED [facility] SPOKE WITH JOSHUA RIPPER OPERATOR NOTIFIED HIM DR PEREIRA WILL BE THE ACCEPTING DR AND NO BED AVAILABLE AT THIS TIME. SPOKE WITH RIPPER OPERATOR ZARA AT [facility] AND SHE SAID DON'T HAVE ANY BED AVAILABLE AT THIS TIME. WILL CHECK ALL THE INFORMATION AND WILL CALL BACK WHEN BED AVAILABLE. DR WOODWARD AWARE OF ALL THE BED STATUS AT THIS TIME.
--- NOTE | 2016-07-30 11:48 | NUR ---
PT ASLEEP AND LYING ON BED, NO S/S OF RESPIRATORY DISTRESS WITH RELATIVES AT BEDSIDE. KEPT CLEAN AND DRY. CALL LIGHT WITHIN REACH, WILL CONTINUE TO MONITOR.
--- NOTE | 2016-07-30 12:59 | NUR ---
PER DAUGHTER, PT NOT ABLE TO CHEW WELL DUE TO MISSING TEETH. CHANGED DIET TEXTURE TO MECHANICAL SOFT.
--- NOTE | 2016-07-30 14:03 | NUR ---
BLISTERS X 3 NOTED ON PT BUTTOCKS. PHOTOS TAKEN AND NOTED IN CHART. SEE WOUND ASSESSMENT
--- NOTE | 2016-07-30 14:20 | NUR ---
TRANSFERRED PT TO THERAPEUTIC WOUND BED USING A FOYER. PT TOLERATED WELL. PT AND FAMILY GIVEN INSTRUCTIONS ON WOUND CARE, VERBALIZED UNDERSTANDING
[2016-07-30] MEDS: HYDRAGUARD CREAM TP SCH (14:32)
[2016-07-30] MEDS ORDERED: HYDRAGUARD CREAM TP PRN (14:35)
--- NOTE | 2016-07-30 16:42 | NUR ---
PT ASLEEP ON BED, NO S/S OF DISTRESS. KEPT CLEAN AND DRY, TURNED AND REPOSITIONED. WITH RELATIVES AT BEDSIDE. CALL LIGHT WITHIN REACH, WILL CONTINUE TO MONITOR.
--- NOTE | 2016-07-30 18:15 | NUR ---
PT BEEN WANTING TO GET UP HER BED AND WALK, ATIVAN GIVEN PRN. BP ATY THIS TIME 158/71, O2 SAT AT 97%
--- NOTE | 2016-07-30 19:12 | NUR ---
ENDORSED PT TO LINDA RN IN STABLE CONDITION FOR CONTINUITY OF CARE
--- NOTE | 2016-07-30 19:40 | NUR ---
RECEIVED PT IN STABLE CONDITION FROM AM NURSE. AWAKE,ALERT AND ORIENTED X2-3. WITH PERIODS OF CONFUSION. FAMILY MEMBER AT BEDSIDE. NO ACUTE DISTRESS NOTED. ON O22L/NC. BEDREST . WITH GEN WEAKNESS. ON TELE MONITOR. -SR. HL ON THE RT AC#22. CLEAR AND PATENT. BEE CATHETER TO GRAVITY WITH DARK AYAKA COLOR URINE OUTPUT. PLAN OF CARE DISCUSSED AND VERBALIZED UNDERSTANDING. CALL LIGHT PLACED WITHIN REACH. BED ON LOW POSITION. SIDE RAILS UP X2. WILL CONTINUE TO MONITOR.
--- NOTE | 2016-07-30 22:00 | NUR ---
PT TURNED TO SIDE. REPOSITIONED FOR COMFORT. NO DISTRESS NOR PAIN NOTED.
--- NOTE | 2016-07-31 03:30 | NUR ---
PT HAS BEEN REPOSITIONED FOR COMFORT. TURNED TO SIDES . NO PAIN NOTED AT THIS TIME.
[2016-07-31 03:50] VITALS: BP 152/85
[2016-07-31] MEDS: MORPHINE SULFATE 2 MG/ML SYR IVP PRN ×4 (03:55→20:27)
--- NOTE | 2016-07-31 03:55 | NUR ---
DAUGHTER WHO IS AT BEDSIDE CAME AND SAID PT NEED SOMETHING FOR PAIN ON TH ELT LEG. WENT TO ROOM AND ASKED .PT SAID HER PAIN 8/. MEDICATED FOR PAIN ORDERED. WILL CONTINUE TO MONITOR.
--- NOTE | 2016-07-31 06:00 | NUR ---
SLEEPING AT THIS TIME. NO S/S OF ANY DISCOMFORT NOR PAIN NOTED.
--- NOTE | 2016-07-31 06:33 | NUR ---
@ 0630 HR ON MONITOR DOWN TO 46. .CHECKED ON PT .SLEEPING WITH NO S/S OF ANY PAIN NOR DISCOMFORT NOTED. HR BACK UP TO 68 AT THIS TIME. WILL CONTINUE TO MONITOR.
--- NOTE | 2016-07-31 07:20 | NUR ---
ENDORSED PT IN STABLE CONDITION TO AM NURSE.
--- NOTE | 2016-07-31 07:30 | NUR ---
RECEIVED PT RESTING COMFORTABLY IN BED, AAOX4, ABLE TO VERBALIZE NEEDS; NO COMPLAINTS OF PAIN, SOB, OR S/S ACUTE DISTRESS AT THIS TIME. ROUTINE/PLAN OF CARE DISCUSSED AND REVIEWED WITH DAUGHTER PRESENT, PT VERBALIZES UNDERSTANDING AND COMPLIANCE. IV SL TO RIGHT AC, SITE ASYMPTOMATIC. SAFETY PRECAUTIONS OBSERVED AND MAINTAINED, BED WITH SPECIAL MATTRESS AND TRAPEZE BAR. ENCOURAGED PT TO CALL FOR ASSISTANCE NEEDED.
[2016-07-31 08:00] VITALS: BP 142/57
--- NOTE | 2016-07-31 08:50 | NUR ---
WOUND CARE EVALUATION NOTES: REASON FOR EVALUATION: X3 BLISTERS BILATERAL BUTTOCKS COMPLETE SKIN ASSESSMENT DONE ON THIS 61 Y/O FEMALE PATIENT FROM HOME TO [facility], WITH INITIAL DIAGNOSIS OF ALTERED MENTAL STATUS AND CHF EXACERBATION. PAST MEDICAL HISTORY INCLUDE MORBID OBESITY, HYPERTENSION AND ARTHRITIS. ALL ABOVE INFORMATION WAS OBTAINED FROM THE ADMISSION H&P. LABS ARE WBC 17.2, H/H 10.3/30.6, ALBUMIN 1.6, GLUCOSE 117, PT/INR 12.8/1.3 AND PTT 33.2. CURRENT MEDS INCLUDE CEFTRIAXONE, MORPHINE, HEPARIN, ATIVAN AND NORCO. PATIENT IS AWAKE, ORIENTED TO PERSON, PLACE BUT NOT TIME. SKIN WARM TO TOUCH WNL, TOENAILS ARE THICKENED, WITH HAIR GROWTH, NO EDEMA, VARICOSE AND SPIDER VEINS NOTED ON BILATERAL FEET AND +3 BILATERAL PEDAL PULSES. ABLE TO TURN SELF WITH ASSISTANCE. INITIAL PLAN OF CARE AND PRESSURE PREVENTIVE MEASURES DISCUSSED, ABLE TO VERBALIZE UNDERSTANDING. INTEGUMENTARY: SACRALCOCCYX TO BILATERAL BUTTOCKS - WITH MULTIPLE DISCOLORATIONS AND SCARRING. RED AND MOIST RECOMMENDATIONS: -CLEANSE SACRALCOCCYX TO PERIAREA WITH MILD SOAP AND WATER, PAT DRY, APPLY Z GUARD BIDWC AND PRN WITH SOILING. LEAVE OPEN TO AIR -TURN AND REPOSITION PATIENT Q2H -ASSESS AND MONITOR SKIN CONDITION DURING POSITION CHANGE, PLEASE PAY PARTICULAR ATTENTION TO SACRALCOCCYX -OFFLOAD BILATERAL HEELS BY PLACING PILLOWS UNDER CALVES AT ALL TIMES, UNLESS OTHERWISE CONTRAINDICATED -PRESSURE REDISTRIBUTION SURFACE THERAPY -KEEP SKIN CLEAN AND DRY AT ALL TIMES. RECOMMENDATIONS DISCUSSED WITH PRIMARY RN. WILL FOLLOW PATIENT Q 7 DAYS AND PRN. PLEASE CONTACT C FOR ANY CONCERNS, QUESTIONS AND CHANGES IN WOUND CONDITION.
[2016-07-31] MEDS: ASPIRIN 81 MG TAB.CHEW PO SCH (09:18)
--- NOTE | 2016-07-31 09:20 | NUR ---
VS NOTED; DUE MEDS GIVEN ORDERED WITH EDUCATION. PT TOLERATED WELL. DAUGHTER AT BEDSIDE TO ASSIST WITH ADLs.
[2016-07-31] MEDS: cefTRIAXone 2,000 MG in DEXTROSE 5% 100 ML IV SCH (10:16)
--- NOTE | 2016-07-31 10:25 | NUR ---
MEDICATED WITH MORPHINE IVP ORDERED, SEE PAIN ASSESSMENT. ROCEPHIN IVPB ADMINISTERED. ASSISTED WITH AM CARE. EVALUATED BY DR WHIPPLE AT BEDSIDE.
[2016-07-31 12:00] VITALS: BP 148/65
[2016-07-31] MEDS: HYDRAGUARD CREAM TP SCH (12:07)
--- NOTE | 2016-07-31 12:38 | NUR ---
KATHRYN NOTE CONCURRENT REVIEW SENT TO [facility] FAX# [phone] PH# LETHA [phone]. SPOKE WITH DYE REEL OPERATOR RAKAN OF [facility] AND SHE SAID THEY DO NOT HAVE ANY MED SURG OR TELE BED AVAILABLE. SPOKE WITH LALITA OF [facility] AND SHE SAID THEY DO NOT HAVE ANY AVAILABLE BED FOR THE PATIENT RIGHT NOW. SPOKE WITH MAYUR OF [facility] AND SHE SAID THEY DO NOT HAVE ANY AVAILABLE BED FOR THE PATIENT. SPOKE WITH [facility] KATHRYN MONAE TO GIVE HER AN UPDATE. CHARGE NURSE GAIL AWARE THAT THEY HAVE TO FOLLOW UP ON A BED FOR THE PATIENT EVERY SHIFT.
[2016-07-31] MEDS ORDERED: HYDRAGUARD CREAM TP ONE (13:00)
--- NOTE | 2016-07-31 13:48 | NUR ---
07/31/16 FOLLOW UP COMPLETED PLEASE REFER TO NUTRITION PROGRESS NOTE UNDER CARE ACTIVITY FOR ESTIMATED NUTRITION NEEDS. RD RECOMMENDATIONS: 1. CONTINUE REGULAR, MECHANICAL SOFT DIET PER MD 2. ENCOURAGE PO INTAKE PT NOT MEETING ESTIMATED KCAL AND PROTEIN NEEDS 3. RD TO ADD HEALTH SHAKES BID FOR ADDITIONAL 600 KCAL AND 18 GM PROTEIN TO HELP PT MEET ESTIMATED NUTRITIONAL NEEDS 3. RD WILL F/U 3-5 DAYS; MODERATE RISK. GWENDOLYN JIM[address]NEZ RD
--- NOTE | 2016-07-31 14:39 | NUR ---
ADMINISTERED MORPHINE IVP FOR C/O LEFT KNEE PAIN, SEE PAIN ASSESSMENT; NARCOTIC EDUCATION AND ALTERNATIVE MEASURES OF PAIN MANAGEMENT DISCUSSED. FAMILY MEMBERS AT BEDSIDE.
--- NOTE | 2016-07-31 15:58 | NUR ---
KATHRYN NOTE FOLLOWED UP WITH RAKAN OF [facility], LALITA OF [facility] AND MAYUR OF [facility], STILL NO AVAILABLE MED SURG OR TELE BED FOR PATIENT. SPOKE WITH KATHRYN MONAE OF [facility] PH# [phone] TO UPDATE HER AND SHE IS AWARE. CHARGE NURSE GAIL GROSSMAN. PER KATHRYN MONAE OF [facility], PATIENT'S NURSE TO FOLLOW UP EVERY SHIFT FOR AVAILABILITY OF BED IN [facility], [facility] AND [facility]. PER KATHRYN MONAE, [facility] TRANSPORT AUTH# [id number], NURSE TO SET UP TRANSPORT ONCE BED AVAILABLE. CHARGE NURSE GAIL AWARE.
[2016-07-31 16:00] VITALS: BP 152/82
[2016-07-31] MEDS ORDERED: Z-GUARD PASTE TP PRN (16:35)
--- NOTE | 2016-07-31 18:40 | NUR ---
PT EVALUATED BY DR OSCAR, DISCUSSED PT CONDITION AND PLAN OF CARE. NO NEW ORDERS AT THIS TIME. CONDITION REMAINS STABLE.
--- NOTE | 2016-07-31 19:18 | NUR ---
RECEIVED PATIENT FROM TERRA CHASE FOR CONTINUITY OF CARE. PATIENT IS A&OX4. DISCUSSED PLAN OF CARE WITH PATIENT, VERBALIZED UNDERSTANDING. SHIFT ASSESSMENT DONE, VS TAKEN, STABLE. NO S/S OF RESPIRATORY DISTRESS NOTED ON 2L NC. PATIENT STATES SHE HAS KNEE PAIN WILL MEDICATE PER MD ORDER. IV RT AC 22 GAUGE PATENT AND FLUSHED. BEE CATHETER IN PLACE DRAINING DARK AYAKA URINE TO GRAVITY. PT HAS BLISTERS TO BUTTOCKS NOTED. SAFETY/FALL PRECAUTIONS ENFORCED. CALL LIGHT WITHIN REACH. FAMILY MEMBERS AT BEDSIDE. WILL CONTINUE TO MONITOR.
--- NOTE | 2016-07-31 19:18 | NUR ---
PT EATING DINNER WITH ASSISTANCE OF FAMILY MEMBER; ENDORSED PLAN OF CARE TO SYSTEM OPERATOR RN
[2016-07-31 20:00] VITALS: BP 161/62
--- NOTE | 2016-07-31 20:16 | NUR ---
NO DISTRESS/SOB/WHEEZING NOTED AT THIS TIME.
--- NOTE | 2016-07-31 20:32 | NUR ---
DUE MEDS ADMINISTERED, TOLERATED WELL. PT C/O 01/04 KNEE PAIN, MEDICATED WITH MORPHINE PER MD ORDER. TURNED PATIENT AND MADE COMFORTABLE. FAMILY MEMBER AT BEDSIDE. WILL CONTINUE TO MONITOR.
[2016-07-31] MEDS: LORazepam 2 MG/ML VIAL IVP PRN (22:17)
--- NOTE | 2016-07-31 22:17 | NUR ---
PT STATES SHE "FEELS ANXIOUS" AND WOULD LIKE MEDICATION. MEDICATED WITH ATIVAN PER MD ORDER. B/P 117/65, HR 85, ALL OTHER VS STABLE. EMPTIED BEE CATHETER, 550 ML DARK AYAKA URINE. WILL CONTINUE TO MONITOR.
[2016-08-01] VITALS: BP 140/59
--- NOTE | 2016-08-01 00:03 | NUR ---
VS TAKEN, STABLE. PATIENT IS SLEEPING AT THIS TIME. WILL CONTINUE TO MONITOR.
[2016-08-01] MEDS: Z-GUARD PASTE TP SCH ×2 (01:21→12:42)
--- NOTE | 2016-08-01 02:02 | NUR ---
PATIENT IS SLEEPING, NO S/S OF DISTRESS OR DISCOMFORT NOTED. WILL CONTINUE TO MONITOR.
[2016-08-01 04:00] VITALS: BP 151/63
[2016-08-01] MEDS: MORPHINE SULFATE 2 MG/ML SYR IVP PRN (04:16)
--- NOTE | 2016-08-01 04:16 | NUR ---
VS TAKEN. REPOSITIONED AND OFFLOADED PRESSURE. PT C/O 10/10 KNEE PAIN, MEDICATED PER MD ORDER. WILL CONTINUE TO MONITOR.
--- NOTE | 2016-08-01 04:22 | NUR ---
CALLED [facility] PH#[phone] AND SPOKE TO ARLENE, NO MED-SURG OR TELE BED AVAILABLE. CALLED [facility] PH#[phone] AND SPOKE TO ADRIAN, NO MED-SURG AND TELE BED AVAILABLE. CALLED [facility] PH#[phone], SPOKE TO HAI FROM ADMITTING DEPT, SHE SAID THEY HAVE PT'S INFORMATION AND THEY MIGHT HAVE A TELE BED AVAILABLE BUT THEY ARE WAITING FOR AUTHORIZATION FROM THE INSURANCE. RENA THAO MADE AWARE.
--- NOTE | 2016-08-01 05:10 | NUR ---
CHECKED IN ON PT, STILL C/O PAIN, MEDICATED PER MD ORDER. CALL LIGHT WITHIN REACH. WILL CONTINUE TO MONITOR.
--- NOTE | 2016-08-01 07:18 | NUR ---
ENDORSED PATIENT TO DAYSHIFT RN FOR CONTINUITY OF CARE, PATIENT IS IN STABLE CONDITION.
--- NOTE | 2016-08-01 07:20 | NUR ---
PT ALERT AND ORIENTED X3. BREATHING EVENLY AND UNLABORED, WITH O2 AT 2L/MIN VIA NC. NO SIGNS OF ACUTE DISTRESS. SKIN IS WARM AND DRY. OFFLOAD TO PRESSURE AREAS, NO SIGNS OF ANY BOWEL/BLADDER DISCOMFORT AT THIS TIME. BEE CATHETER IN PLACE WITH DARK AYAKA COLOR URINE AT 100ML. NO C/O ANY PAIN AT THIS TIME. ALL NEEDS ATTENDED, SAFETY PRECAUTIONS MAINTAINED. FAMILY AT BEDSIDE, CALL LIGHT WITHIN REACH.
[2016-08-01 07:46] VITALS: BP 147/72
[2016-08-01] MEDS ORDERED: HYDROcodone/APAP 5/325 MG 1 TAB TAB PO PRN (08:30)
[2016-08-01] MEDS: ASPIRIN 81 MG TAB.CHEW PO SCH (08:48)
[2016-08-01] MEDS: HYDROcodone/APAP 10/325 MG 1 TAB TAB PO PRN ×2 (08:48→20:46)
--- NOTE | 2016-08-01 09:00 | NUR ---
DUE MEDS GIVEN, TOLERATED WELL. CONTINUE TO MONITOR
[2016-08-01] MEDS: cefTRIAXone 2,000 MG in DEXTROSE 5% 100 ML IV SCH (09:01)
--- NOTE | 2016-08-01 10:31 | NUR ---
CM CRISTIAN SPOKE WITH SHEET METAL DUCT INSTALLER APPRENTICE RAKAN OF [facility] AND SHE SAID THEY STILL DON'T HAVE A BED AVAILABLE. SPOKE WITH GERARD OF [facility] AND SHE SAID THAT THEY STILL DON'T HAVE A BED AVAILABLE. CALLED [facility] TO FOLLOW UP ON A BED FOR THE PATIENT AND LEFT A MESSAGE TO THE SHEET METAL DUCT INSTALLER APPRENTICE # [phone], WAITING FOR CALL BACK. [facility] KATHRYN MONAE AWARE AND SHE ALSO CALLED TO FOLLOW UP FOR A BED ON [facility], NO BED AVAILABLE. SPOKE WITH DR. QUEZADA ON THE FLOOR AND SHE IS AWARE.
[2016-08-01 12:00] VITALS: BP 129/60
--- NOTE | 2016-08-01 13:22 | NUR ---
CM NOTE CONCURRENT REVIEW SENT TO [facility] FAX# [phone] PH# LETHA [phone]
--- NOTE | 2016-08-01 15:50 | NUR ---
OBTAINED CURRENT WEIGHT 379.2 LBS REPORTED TO SS.
--- NOTE | 2016-08-01 15:58 | NUR ---
CM NOTE FOLLOWED UP ON A BED FOR THE PATIENT, STILL NO BED AVAILABLE IN [facility], [facility], [facility]. SPOKE WITH KATHRYN MONAE OF [facility] TO UPDATE HER AND SHE SAID SHE WILL SEE IF THE PATIENT CAN BE SCHEDULED FOR THE PROCEDURE IN [place] AND TO BRING THE PATIENT BACK TO [facility] AFTER THE PROCEDURE. PER NURSE SHANICE, PATIENT'S CURRENT WEIGHT IS 379.2 LBS. CHARGE NURSE GAIL GROSSMAN.
[2016-08-01 16:00] VITALS: BP 133/61
--- NOTE | 2016-08-01 19:04 | NUR ---
PT ALERT AND RESPONSIVE, NO SIGNS OF ACUTE DISTRESS. ENDORSED TO ONCOMING MANAGER PHP NURSE FOR CONTINUITY OF CARE.
--- NOTE | 2016-08-01 19:15 | NUR ---
RECEIVED PT FROM SHANICE RN PT IS AAOX4 MORBID OBESITY ON 02 2 LTS VIA NC ON TELEMETRY SR, MOBED OBESITY RELATIVES AT BED SIDE , BEE CATH DRAINING WELL YULISSA AYAKA COLOR URINE INITIAL ASSESSMENT DONE
[2016-08-01 20:00] VITALS: BP 135/66
--- NOTE | 2016-08-01 20:00 | NUR ---
DR ASHFORD CALLED AND ORDER TO FOLLOW
--- NOTE | 2016-08-01 22:47 | NUR ---
PT SLEEPING DENIES ANY PAIN AT THIS TIME ON TELEMETRY SR
[2016-08-01] MEDS ORDERED: LORazepam 2 MG/ML VIAL IVP PRN (23:30)
[2016-08-02] VITALS: BP 120/60
--- NOTE | 2016-08-02 01:00 | NUR ---
;PT REPOSITIONED Q2H DENIES ANY PAIN, SLEEPING WELL ON TELEMETRY SR
[2016-08-02] MEDS: Z-GUARD PASTE TP SCH ×3 (01:08→23:23)
[2016-08-02 04:00] VITALS: BP 136/62
[2016-08-02] MEDS: HYDROcodone/APAP 10/325 MG 1 TAB TAB PO PRN ×3 (04:53→20:38)
--- NOTE | 2016-08-02 05:23 | NUR ---
LPT REPOSITIONED SPONGE BATH GIVEN LINEN CHANGED AFTER PAIN MEDIC GIVENPT GETTING SLEEP ON TELMETRY SR
--- NOTE | 2016-08-02 06:26 | NUR ---
PT SLEEPING AFTER PAIN MEDIC GIVEN NOT DISTRESS NOTED AT THIS TIME ON TELEMETRY SR ,RELATIVE AT BED SIDE
--- NOTE | 2016-08-02 07:20 | NUR ---
RECEIVED REPORT FROM RENA RABAGO AT PT BEDSIDE. PT SLEEPING. EASILY AWAKENS TO SHAKING. FAMILY AT BEDSIDE. PT IS LETHARGIC. AAOX2. DENIES DISCOMFORT AT THIS TIME. NO S/S OF ACUTE DISTRESS. BEE IN PLACE TO GRAVITY TO LIGHT AYAKA CLEAR. IV SITE PATENT AND INTACT. SAFETY MEASURES ENSURED. CALL LIGHT WITHIN REACH. WILL CONTINUE TO MONITOR.
[2016-08-02 08:00] VITALS: BP 139/61
[2016-08-02] MEDS ORDERED: LORazepam 2 MG/ML VIAL IVP PRN (09:05)
--- NOTE | 2016-08-02 09:06 | NUR ---
PATIENT SEEN BY DR. WOODWARD. HEPARIN AM DOSE HELD, PATIENT TO GO TO [place] FOR KNEE ASPIRATION. PT RESTING IN BED. FAMILY AT BEDSIDE. MED REC'D BY .
[2016-08-02] MEDS: cefTRIAXone 2,000 MG in DEXTROSE 5% 100 ML IV SCH (09:08)
[2016-08-02] MEDS: ASPIRIN 81 MG TAB.CHEW PO SCH (09:08)
[2016-08-02] MEDS: FLUoxetine 20 MG CAP PO SCH (09:17)
--- NOTE | 2016-08-02 10:50 | NUR ---
PATIENT RESTING IN BED. NO S/S OF ACUTE DISTRESS. FAMILY AT BEDSIDE.
[2016-08-02] MEDS: DEXT 5% /NACL 0.9% 1,000 ML IV SCH (11:30)
--- NOTE | 2016-08-02 11:55 | NUR ---
AWAKE AND ALERT RESPONSIVE TO ELECTRONIC PARTS DESIGNER PATIENT C/O OF NASAL DRYNESS WITH SUPPLEMENTAL OXYGEN ADDED HUMIDIFIER SATURATION 98% ON 3 LPM VIA NC TITRATED FIO2 TO 2 LPM
[2016-08-02 12:00] VITALS: BP 139/69
--- NOTE | 2016-08-02 12:04 | NUR ---
KATHRYN FOSTER SPOKE WITH MACARIO OF [facility] PH# [phone] AND INFORMED HER THAT THE ORDER OF DR. Rosa WOODWARD IS FOR CT WITHOUT CONTRAST LEFT LOWER EXTREMITY AND CT GUIDED LEFT KNEE JOINT ASPIRATION. PATIENT'S SCHEDULED FOR 9:30AM TIME AUGUST 03, 2016Sunday. PER MACARIO, PATIENT HAS TO BE AT [facility] BY 9:00AM TIME. FAXED THE ORDER TO [facility] ATTN: MACARIO FAX# [phone]. SPOKE WITH KATHRYN MONAE OF [facility] AND GAVE HER A VERBAL CLINICAL UPDATE ON THE PATIENT PH# [phone]. PER KATHRYN MONAE, AMB AUTH# [id number] AND PROCEDURE AUTH# [id number]. SPOKE WITH RADHA OF [facility] PH# [phone] TO SET UP PATIENT TRANSPORT TO WAIT ON RETURN BY VICK DAVIDSON ON 2L O2 VIA NC GOING TO [facility] MORGUE TECHNICIAN TIME 8:00AM ON AUGUST 03, 2016Sunday. CHARGE NURSE GAIL GROSSMAN EXT [phone].
--- NOTE | 2016-08-02 13:10 | NUR ---
7266 CALL RECEIVED FROM MACARIO AT [facility] RAD[facility] DEPT INQUIRING IF PT STILL REQUIRES PROCEDURE FOR LEFT KNEE ASPIRATION. CALL BACK #[phone]. WILL VERIFY WITH DR WOODWARD AND CALL MACARIO BACK.
--- NOTE | 2016-08-02 14:01 | NUR ---
PT RESTING IN BED. MEDICATED FOR PAIN. FAMILY AT BEDSIDE. NO S/S OF ACUTE DISTRESS.
[2016-08-02 16:00] VITALS: BP 153/72
--- NOTE | 2016-08-02 16:19 | NUR ---
PHYSICAL THERAPY CO-SIGN The Physical Therapy Progress Notes documented by Carpenter Mate have been reviewed. Reviewed/Co-Signed by: Keily Laughlin Documentation Done by:SUSAN RENDON CORRECTIONAL FOOD SERVICE SUPERVISOR WILL BENEFIT W/ P.T. AFTER ACUTE STAY. Addendum: 08/03/16 at 1045 by Keily Laughlin PT Amended: Links added.
--- NOTE | 2016-08-02 17:05 | NUR ---
ASSISTED PT IN CHANGING OF LINENS. PT CLEAN AND DRY. NO S/S OF ACUTE DISTRESS NOTED. ALL NEEDS MET. FAMILY AT BEDSIDE. CALL LIGHT WITHIN REACH.
--- NOTE | 2016-08-02 18:57 | NUR ---
SPOKE WITH DR. YEE REGARDING NO IV ACCESS. PATIENT TO HAVE PICC LINE INSERTED TOMORROW. OKAY PER MD TO HOLD IV FLUIDS AT THIS TIME. PATIENT TOLERATING MEALS WELL.
--- NOTE | 2016-08-02 19:20 | NUR ---
RECEIVED PT REPORT FROM YOLANDA RN AT BEDSIDE FOR CONTINUITY OF CARE. NO DISTRESS NOTED, FAMILY AT BEDSIDE. CALL LIGHT WITHIN REACH.
--- NOTE | 2016-08-02 19:25 | NUR ---
ENDORSED PLAN OF CARE TO RENA SONG AT PT BEDSIDE. NO S/S OF ACUTE DISTRESS.
--- NOTE | 2016-08-02 19:48 | NUR ---
SHIFT ASSESSMENT DONE AT THIS TIME. PT IS A/O X3, NO S/S OF ACUTE DISTRESS. IS ZIMBABWEAN SPEAKING, ABLE TO FOLLOW COMMANDS AND VERBALIZE NEEDS. VITAL SIGNS ARE STABLE, PT IS ON 2L NASAL CANNULA WITH OXYGEN SATURATION AT 100%. PT STATES TO HAVE LEFT LOWER LEG PAIN 01/04, WILL PROVIDE PAIN MEDICATION. IS AFEBRILE. PT DENIES N/V/D, DENIES CHEST PAIN, AND SOB. NO RESPIRATORY DISTRESS NOTED. NO IV ACCESS, WILL START NEW ONE. UPON INSPECTION, NOTED SKIN INTACT. BEE CATHETER IN PLACE, DRAINING TO GRAVITY OF AYAKA COLOR URINE. NOTED BRUISES TO BUE, ABDOMEN AND LOWER EXTREMITIES. DISCUSSED PLAN OF CARE WITH PT, VERBALIZED UNDERSTANDING. CALL LIGHT WITHIN EASY REACH WILL CONTINUE MONITOR PT. SAFETY PRECAUTIONS IMPLEMENTED. Addendum: 08/02/16 at 2300 by Karin Davalos RN ALSO NOTED PT TO HAVE BILATERAL EXTREMITY, ANKLES AND PEDAL EDEMA, +2.
--- NOTE | 2016-08-02 19:55 | NUR ---
NEW IV STARTED TO RT WRIST #24G, PATENT AND INTACT.
[2016-08-02 20:00] VITALS: BP 133/71
--- NOTE | 2016-08-02 21:08 | NUR ---
DR. DANGELO AT PT BEDSIDE, MADE AWARE OF PT PLAN FOR TRANSFER TOMORROW TO [place] FOR LEFT LOWER EXTREMITY CT AND POSSIBLE FLUID COLLECTION. NEW ORDERS RECEIVED FROM ANTOLIN FOR PT TO HAVE FLUID SENT TO LAB FOR CELL COUNT + DIFFERENTIAL, CRYSTALS, AND GRAM STAIN AND C/S. SPOKE TO PIA IN RADIOLOGY DEPARTMENT AT [place] REGARDING DR. DANGELO'S NEW ORDERS, FAXED THE NEW ORDER TO . CONFIRMATION OF RECEIVED FAXED BY PIA. WILL ALSO 911 OPERATOR IN MORNING TO NOTIFY.
--- NOTE | 2016-08-02 23:12 | NUR ---
PT STATES TO FEEL VERY ANXIOUS AT THIS TIME, SHE IS REQUESTING MEDICATION FOR ANXIETY. WILL ADMINISTER. SEE eMAR.
--- NOTE | 2016-08-02 23:23 | NUR ---
TURNED PT AT THIS TIME, Z-GUARD APPLIED PER ORDERS. NOTED MODERATE BM, NOTED DARK BROWN AND SOFT. CALL LIGHT WITHIN REACH. IV ACCESS STILL INTACT. WILL CONTINUE TO MONITOR PT. VITAL SIGNS REMAINS STABLE.
[2016-08-03] VITALS: BP 141/62
--- NOTE | 2016-08-03 02:16 | NUR ---
PT NOTED SLEEPING WELL, NO DISTRESS. CALL LIGHT WITHIN REACH.
[2016-08-03] MEDS: HYDROcodone/APAP 10/325 MG 1 TAB TAB PO PRN ×2 (02:43→08:33)
--- NOTE | 2016-08-03 03:30 | NUR ---
PT VSS, ON 2L NC. C.O. PAIN, PAIN MEDICATION PROVIDED. WILL CONTINUE TO MONITOR PT. CALL LIGHT WITHIN REACH.
[2016-08-03 04:00] VITALS: BP 150/70
--- NOTE | 2016-08-03 06:29 | NUR ---
SPOKE TO RADHA FROM [facility] AT PHONE # REGARDING PICKUP FOR PT TO HAVE APPT AT [facility] FOR RADIOLOGY APPT AT 0900AM, AWARE PT NEEDS BARIATRIC GURNEY AND OXYGEN 2L NASAL CANNULA FOR TRANSPORT. BANKING AND FINANCE INSTRUCTOR CONFIRMED FOR 0800 AM.
--- NOTE | 2016-08-03 06:34 | NUR ---
SPOKE WITH ELIOT SOFTWARE MANAGER FROM RADIOLOGY DEPARTMENT AT AT [facility], CONFIRMED PT TO HAVE APPT AT 0900AM AND FOR EXTREMITY CT AND POSSIBLE FLUID COLLECTION, ALSO PT TO HAVE FLUID SENT TO LAB FOR CELL COUNT + DIFFERENTIAL, CRYSTALS, AND GRAM STAIN AND C/S.
[2016-08-03] MEDS: DEXT 5% /NACL 0.9% 1,000 ML IV SCH (06:58)
[2016-08-03] MEDS: cefTRIAXone 2,000 MG in DEXTROSE 5% 100 ML IV SCH (06:58)
--- NOTE | 2016-08-03 07:28 | NUR ---
ENDORSED PT TO JENNIFER RN FOR CONTINUITY OF CARE. PT NOTED STABLE, SLEEPING.
--- NOTE | 2016-08-03 07:30 | NUR ---
RECEIVED PT RESTING COMFORTABLY IN BED, AAOX4, ABLE TO VERBALIZE NEEDS; NO COMPLAINTS OF PAIN, SOB, OR S/S ACUTE DISTRESS AT THIS TIME. PT WILL BE TRANSPORTED TO [facility] FOR RADIOLOGY PROCEDURE, [facility] ETA 0800, CHART COPIED. ROUTINE/PLAN OF CARE DISCUSSED AND REVIEWED WITH DAUGHTER PRESENT, PT VERBALIZES UNDERSTANDING AND COMPLIANCE. IVF INFUSING TO RIGHT WRIST, SITE ASYMPTOMATIC. BEE CATH PATENT AND DRAINING BY GRAVITY, AYAKA URINE NOTED. SAFETY PRECAUTIONS OBSERVED AND MAINTAINED, BED WITH SPECIAL MATTRESS AND TRAPEZE BAR. ENCOURAGED PT TO CALL FOR ASSISTANCE NEEDED.
[2016-08-03 08:00] VITALS: BP 142/63
--- NOTE | 2016-08-03 08:34 | NUR ---
VSS. MEDICATED WITH NORCO PO FOR C/O LEFT KNEE PAIN, SEE PAIN ASSESSMENT. [facility] AT THIS TIME.
[2016-08-03] MEDS: ASPIRIN 81 MG TAB.CHEW PO SCH (09:00)
[2016-08-03] MEDS: FLUoxetine 20 MG CAP PO SCH (09:00)
--- NOTE | 2016-08-03 11:00 | NUR ---
VSS. PT RETURNED TO UNIT IN STABLE CONDITION. LEFT KNEE ASPIRATION SITE DRESSED WITH BANDAID, MODERATE AMT SEROSANGUINOUS DRAINAGE NOTED, NO S/S ACTIVE BLEEDING. DAUGHTER AT BEDSIDE. WILL CONTINUE TO MONITOR.
[2016-08-03 11:59] VITALS: BP 151/82
[2016-08-03] MEDS: Z-GUARD PASTE TP SCH (12:40)
--- NOTE | 2016-08-03 13:00 | NUR ---
ASSISTED PT WITH ADLs INCLUDING BED BATH AND GOWN CHANGE, PT TOLERATED WELL. NO S/S DISTRESS.
--- NOTE | 2016-08-03 13:38 | NUR ---
CM NOTE CONCURRENT REVIEW SENT TO [facility] FAX# [phone] PH# LETHA [phone]
--- NOTE | 2016-08-03 13:41 | NUR ---
P.T. NOTES HOLD P.T. TX TODAY, Pt UNAVAILABLE DUE TO HOSP PROC ([facility]); WAS SEEN IN AFTERNN, Pt REQUESTED TO BE SEEN TOMORROW, FEELS TIRED FROM PROCEDURE, APPRECIATIVE, KENNEL HAND IN ROOM FOR ADLs; OHT IN PLACE, REVIEWED HEP, CALL HERMAN, PHONE, TABLE IN REACH; FOLLOW UP TOMORROW. PVE
--- NOTE | 2016-08-03 14:58 | NUR ---
PT SEEN AND EVALUATED BY DR OSCAR, DISCUSSED PT CONDITION AND PLAN OF CARE; NEW ORDERS ACKNOWLEDGED AND CARRIED OUT. Addendum: 08/03/16 at 1529 by Jade Luong RN ADD TO ENTRY: BEE DRAINAGE TUBING AND BAG CHANGED, CLEAR LIGHT AYAKA. URINE NOTED. SPECIMEN SENT TO LAB
[2016-08-03] MEDS: MORPHINE SULFATE 2 MG/ML SYR IVP PRN (15:20)
[2016-08-03 16:00] VITALS: BP 144/71
--- NOTE | 2016-08-03 16:00 | NUR ---
VSS. REMOVED O2 VIA NC. SaO2 REMAINS AT 95-96% ON ROOM AIR AFTER FIVE MINUTES. DISCONTINUED O2 SUPPLEMENTATION, EDUCATION GIVEN TO PT AND FAMILY MEMBER AT BEDSIDE. WILL CONTINUE TO MONITOR.
--- NOTE | 2016-08-03 16:45 | NUR ---
NOTIFIED DR OSCAR OF UA RESULTS. MEKA'Wilder BEE ORDERED, ASSISTED WITH PERICARE. INSTRUCTED PT TO NOTIFY STAFF FOR BEDPAN ASSISTANCE OR INABILITY TO URINATE. FAMILY MEMBER AT BEDSIDE. WILL CONTINUE TO MONITOR.
--- NOTE | 2016-08-03 18:00 | NUR ---
PT VOIDED LARGE AMT HEMATURIA ON PAD, MODERATE AMT SOFT BROWN STOOL; PERICARE AND SKINCARE GIVEN. REPOSITIONED FOR COMFORT. FAMILY MEMBER AT BEDSIDE.
--- NOTE | 2016-08-03 19:12 | NUR ---
RECEIVED PT FROM TERRA CHASE AT BEDSIDE FOR PT CONTINUITY OF CARE. PT NOTED STABLE, NO S/S OF DISTRESS. FAMILY AT BEDSIDE AND CALL LIGHT WITHIN REACH.
--- NOTE | 2016-08-03 19:12 | NUR ---
CONDITION STABLE, ENDORSED PLAN OF CARE TO SCALES INSPECTOR RN.
--- NOTE | 2016-08-03 19:40 | NUR ---
SHIFT ASSESSMENT DONE AT THIS TIME. PT IS A/O X3,BAHAMIAN SPEAKING, ABLE TO FOLLOW COMMANDS AND VERBALIZE NEEDS. NO S/S OF ACUTE DISTRESS. VITAL SIGNS ARE STABLE, PT IS ON ROOM AIR WITH OXYGEN SATURATION AT 96%. PT DENIES PAIN. IS AFEBRILE. PT DENIES N/V/D, DENIES CHEST PAIN, AND SOB. NO RESPIRATORY DISTRESS NOTED. IV ACCESS TO LEFT WRIST #24G, PATENT AND INTACT. UPON INSPECTION, NOTED SKIN INTACT, ONLY SACRAL SCARS, NOTED BRUISES TO BUE, ABDOMEN AND LOWER EXTREMITIES. BLE EDEMA +2, NON PITTING. LUNG SOUNDS ARE CLEAR, BOWEL SOUNDS ACTIVE. PER PT HAD, BM TODAY. PT ON TRAPEZE BED AND WOUND BED. DISCUSSED PLAN OF CARE WITH PT, VERBALIZED UNDERSTANDING. CALL LIGHT WITHIN EASY REACH WILL CONTINUE MONITOR PT. SAFETY PRECAUTIONS IMPLEMENTED. PT ALSO REQUESTED SLEEPING PILL TONIGHT, SINCE DID NOT SLEEP WELL LAST NIGHT. WILL NOTIFY .
[2016-08-03 20:00] VITALS: BP 152/53
--- NOTE | 2016-08-03 20:05 | NUR ---
SPOKE TO CRISTI FROM LAB AT [facility], WILL FAX OVER CELL COUNT AND CRYSTAL RESULTS FROM FLUID OF NEEDLE ASPIRATION DONE EARLIER TODAY. PER CRISTI RESULTS FOR CULTURE AND AEROBIC GRAM STAIN STILL PENDING.
--- NOTE | 2016-08-03 20:18 | NUR ---
SPOKE TO PHAM READ REGARDING PT REQUESTING SLEEPING MEDICATION. NEW ORDERS RECEIVED AND ALSO FOR AM LABS.
--- NOTE | 2016-08-03 21:05 | NUR ---
DR. DANGELO AT PT BEDSIDE. MADE AWARE OF RECEIVED PT RESULT FROM LT KNEE ASPIRATION FOR CELL COUNT AND CRYSTAL, STILL PENDING CULTURE AND GRAM STAIN.
[2016-08-03] MEDS: ZOLPIDEM 5 MG TAB PO PRN (21:10)
--- NOTE | 2016-08-03 23:53 | NUR ---
VITAL SIGNS REMAIN STABLE, NO S/S OF ACUTE DISTRESS. CALL LIGHT WITHIN REACH.
[2016-08-04] VITALS: BP 134/57
[2016-08-04] MEDS: Z-GUARD PASTE TP SCH ×2 (01:01→10:45)
--- NOTE | 2016-08-04 02:02 | NUR ---
PT SLEEPING WELL, NO S/S OF ACUTE DISTRESS. CALL LIGHT WITHIN REACH.
[2016-08-04] MEDS: DEXT 5% /NACL 0.9% 1,000 ML IV SCH ×2 (02:04→23:30)
[2016-08-04 04:00] VITALS: BP 149/71
--- NOTE | 2016-08-04 04:05 | NUR ---
PT VITAL SIGNS REMAIN STABLE. CALL LIGHT WITHIN REACH.
--- NOTE | 2016-08-04 07:12 | NUR ---
ENDORSED PT TO JENNIFER RN AT BEDSIDE FOR PT CONTINUITY OF CARE.
--- NOTE | 2016-08-04 07:30 | NUR ---
RECEIVED PT RESTING COMFORTABLY IN BED, AAOX4, ABLE TO VERBALIZE NEEDS; NO COMPLAINTS OF PAIN, SOB, OR S/S ACUTE DISTRESS AT THIS TIME. ROUTINE/PLAN OF CARE DISCUSSED AND REVIEWED WITH DAUGHTER PRESENT, PT VERBALIZES UNDERSTANDING AND COMPLIANCE. IVF INFUSING TO RIGHT WRIST, SITE ASYMPTOMATIC. SAFETY PRECAUTIONS OBSERVED AND MAINTAINED, BED WITH SPECIAL MATTRESS AND TRAPEZE BAR. ENCOURAGED PT TO CALL FOR ASSISTANCE NEEDED.
[2016-08-04 08:00] VITALS: BP 146/77
--- NOTE | 2016-08-04 09:15 | NUR ---
VSS. ADMINISTERED ROUTINE MEDS ORDERED WITH EDUCATION, PT TOLERATED WELL. DAUGHTER AT BEDSIDE ASSISTING PT WITH ADLs. ENCOURAGED TO CALL FOR ASSISTANCE NEEDED.
--- NOTE | 2016-08-04 09:50 | NUR ---
PT STATES SHE IS EXPERIENCING URINARY RETENTION, DYSURIA, AND SEVERE SUPRAPUBIC TENDERNESS. BLADDER SCANNER SHOWS 502ML. PAGED DR OSCAR AT THIS TIME.
[2016-08-04] MEDS: ASPIRIN 81 MG TAB.CHEW PO SCH (09:55)
[2016-08-04] MEDS: cefTRIAXone 2,000 MG in DEXTROSE 5% 100 ML IV SCH (09:55)
[2016-08-04] MEDS: FLUoxetine 20 MG CAP PO SCH (09:55)
[2016-08-04] MEDS: MORPHINE SULFATE 2 MG/ML SYR IVP PRN (10:05)
--- NOTE | 2016-08-04 10:05 | NUR ---
CALLBACK FROM DR OSCAR, NOTIFIED OF PATIENTS CONDITION, ORDER RECEIVED TO INSERT BEE, PT VERBALIZES UNDERSTANDING. SMALL AMOUNT YELLOW URINE AND MODERATE AMT SOFT BROWN STOOL, PERICARE AND SKIN CARE GIVEN. INSERTED 16FR AT THIS TIME USING STERILE TECHNIQUE, PT TOLERATED WELL. 1100ML HAZY AYAKA URINE DRAINED. BEE DRAINING BY GRAVITY. PT VERBALIZES INSTANT RELIEF OF LOWER ABD PAIN. FAMILY MEMBERS AT BEDSIDE. WILL CONTINUE TO CLOSELY MONITOR.
--- NOTE | 2016-08-04 10:11 | NUR ---
CM NOTE CONCURRENT REVIEW SENT TO [facility] FAX# [phone] PH# LETHA [phone]
[2016-08-04 12:00] VITALS: BP 135/66
--- NOTE | 2016-08-04 12:00 | NUR ---
VSS. NO S/S DISTRESS.
[2016-08-04] MEDS ORDERED: ACETAMINOPHEN-H1 TA3 PO (12:04)
[2016-08-04] MEDS ORDERED: FLUOXETINE HYDR20 M1 PO (12:04)
[2016-08-04] MEDS ORDERED: ACETAMINOPHEN325 M2 PO (12:04)
[2016-08-04] MEDS ORDERED: ATIVAN0.5 MG PO (12:04)
--- NOTE | 2016-08-04 13:19 | NUR ---
Social Service Note: I faxed inquiry to [facility] , [address] [place] [address]. Per Magda from [facility], they can accept patient, she is aware patient will require a bariatric bed. I spoke with patient and informed her [facility] has a room available for her and can accommodate her and inquire if she would like to meet with Ani from [facility]. She stated she was in agreement with meeting with Ani. Ani met with patient and patient's family. Patient and patient's family agreeable with patient's transfer to [facility], they are aware plan is to transfer patient to [facility] today. Per Robotics Engineer Lizet, bariatric bed physician order should be fax to [facility] , fax . I faxed order to [facility], I included [facility]'s address on fax
--- NOTE | 2016-08-04 14:30 | NUR ---
PT SEEN RESTING COMFORTABLY IN BED, NO S/S DISTRESS. FAMILY MEMBER AT BEDSIDE.
--- NOTE | 2016-08-04 14:56 | NUR ---
CM NOTE SPOKE WITH [facility] KATHRYN MONAE PH# [phone] AND SHE SAID AUTH# FOR AMBULANCE TRANSPORT IS [id number]. SPOKE WITH [facility] PH# [phone] TO SET UP PATIENT TRANSPORT BY VICK DAVIDSON [address] SPECIAL PROCEDURE TECHNOLOGIST TIME TODAY FROM [place] GOING TO [facility] IN [place] [address] BED A, NUMBER TO CALL FOR REPORT PH# [phone]. CHARGE NURSE CORNELIA GROSSMAN EXT [phone].
--- NOTE | 2016-08-04 15:01 | NUR ---
Social Service Note: Per Magda from [facility] ([facility]) she has been speaking with Melissa from [facility] regarding bariatric bed and trapeze and Magda will contact charge nurse Shonna once bed is delivered at [facility], if patient cannot be deliver before 7pm today at [facility], Magda will contact Charge Nurse Shonna so RENA Kilpatrick can cancel [facility], which has been arranged by Simplex Printer Installer Lizet, worm picker time 7:30pm.
--- NOTE | 2016-08-04 15:12 | NUR ---
Social Service Note: Per Magda from [facility] ([facility]) she has been speaking with Melissa from [facility] regarding bariatric bed and trapeze and Magda will contact charge nurse Shonna once bed is delivered at [facility], if bariatric bed cannot be deliver before 7pm today at [facility], Magda will contact Charge Nurse Shonna so RENA Kilpatrick can cancel [facility] , which has been arranged by Senior Java Ui Developer Lizet, warehouse order picker time 7:30pm. Senior Java Ui Developer Lizet informed Charge Nurse Shonna of above information and instructed her, tomorrow's charge nurse needs to follow up with [facility] tomorrow regarding transfer and bariatric bed. Per Magda, she will have someone from [facility] contact tomorrow's charge nurse in case patient cannot be transfer to [facility] today.
[2016-08-04 16:00] VITALS: BP 140/64
--- NOTE | 2016-08-04 16:03 | NUR ---
GRANT FROM [facility] CALLED ME AND STATED WE MIGHT NOT GETTING THE BARIATRIC GUTRACEE MIR[place]ONTES AND SHE RECOMMENDED TO CALL AND CANCELL THE TRANSPORT AND CALLED THE TRANSPORT AND PLACE IT WILL CALL.
--- NOTE | 2016-08-04 16:48 | NUR ---
ORAL TEMP 100.4, COOLING MEASURES AND TYLENOL PO GIVEN ORDERED WITH EDUCATION.
--- NOTE | 2016-08-04 17:30 | NUR ---
99.4 ORAL TEMP. COOLING MEASURES CONTINUED.
--- NOTE | 2016-08-04 19:23 | NUR ---
STABLE CONDITION. ENDORSED PLAN OF CARE TO ORGAN TUNER.
--- NOTE | 2016-08-04 19:35 | NUR ---
RECEIVED REPORT FROM DAY NURSETERRA. PATIENT RESTING IN BED, FAMILY MEMBER AT BEDSIDE. NO RESPIRATORY DISTRESS, SOB, OR DISCOMFORT. INITIAL ASSESSMENT AND BODY CHECK DONE. PATIENT IS AOX4, SKIN IS INTACT, IV ACCESS TO RIGHT WRIST 24G, PATENT. DISCUSSED PLAN OF CARE, MEDICATION REGIMENT, AND PAIN MANAGEMENT WITH PATIENT AND FAMILY. PATIENT VERBALIZED UNDERSTANDING. OVERHEAD TRAPEZE NOTED. F/C IN PLACE DRAINING CLEAR AYAKA. PLACED PATIENT ON SAFETY/FALL/PRESSURE ULCER/ASPIRATION PRECAUTIONS. CALL LIGHT LEFT WITHIN REACH, WILL CONTINUE TO MONITOR.
[2016-08-04 20:00] VITALS: BP 148/57
--- NOTE | 2016-08-04 21:48 | NUR ---
PATIENT STATING UNABLE TO SLEEP, REQUESTING MEDICATION. WILL MEDICATE PER MD ORDER.
[2016-08-04] MEDS: ZOLPIDEM 5 MG TAB PO PRN (21:51)
--- NOTE | 2016-08-04 22:05 | NUR ---
PATIENT IN BED, SLEEPING. NO RESPIRATORY DISTRESS, SOB, OR DISCOMFORT. CALL LIGHT LEFT WITHIN REACH, WILL CONTINUE TO MONITOR.
[2016-08-05] VITALS: BP 138/62
--- NOTE | 2016-08-05 00:55 | NUR ---
PATIENT ASLEEP. NO RESPIRATORY DISTRESS, SOB, OR DISCOMFORT. CALL LIGHT LEFT WITHIN REACH, WILL CONTINUE TO MONITOR.
[2016-08-05] MEDS: Z-GUARD PASTE TP SCH ×2 (01:23→13:14)
--- NOTE | 2016-08-05 03:06 | NUR ---
PATIENT SLEEPING. NO RESPIRATORY DISTRESS, SOB, OR DISCOMFORT. CALL LIGHT LEFT WITHIN REACH, WILL CONTINUE TO MONITOR.
[2016-08-05 04:00] VITALS: BP 150/67
[2016-08-05] MEDS: MORPHINE SULFATE 2 MG/ML SYR IVP PRN ×2 (05:39→09:44)
--- NOTE | 2016-08-05 06:17 | NUR ---
PATIENT IN BED, ASLEEP. NO RESPIRATORY DISTRESS, SOB, OR DISCOMFORT. CALL LIGHT LEFT WITHIN REACH, WILL CONTINUE TO MONITOR.
--- NOTE | 2016-08-05 07:17 | NUR ---
REPORT GIVEN TO DAY NURSE, KUSHAL. PATIENT RESTING IN BED, STABLE. NO RESPIRATORY DISTRESS, SOB, OR DISCOMFORT. ALL NEEDS ATTENDED TO DURING SHIFT, CALL LIGHT LEFT WITHIN REACH.
--- NOTE | 2016-08-05 07:20 | NUR ---
RECEIVED REPORT FROM TROLLEY COACH DRIVER RN. PT AWAKE, A/O X 4, FAMILY AT BEDSIDE. NO S/S OF ACUTE CARDIAC/RESPIRATORY DISTRESS OR DISCOMFORT. SAFETY MEASURES AND FALL RISK PRECAUTIONS IN PLACE, CALL LIGHT WITHIN REACH. WILL CONTINUE PLAN OF CARE AND CONTINUE TO MONITOR.
[2016-08-05 08:00] VITALS: BP 163/80
[2016-08-05] MEDS: FLUoxetine 20 MG CAP PO SCH (09:27)
[2016-08-05] MEDS: ASPIRIN 81 MG TAB.CHEW PO SCH (09:27)
[2016-08-05] MEDS: cefTRIAXone 2,000 MG in DEXTROSE 5% 100 ML IV SCH (09:44)
--- NOTE | 2016-08-05 10:00 | NUR ---
PT RESTING WITH EYES CLOSED, DAUGHTER AT BEDSIDE. PT COMPLAINED OF PAIN, MEDICATED WITH MORPHINE. TOLERATED AM MEDS WELL. NO S/S OF ACUTE DISTRESS OR DISCOMFORT. CALL LIGHT WITHIN REACH, WILL CONTINUE TO MONITOR.
[2016-08-05 12:00] VITALS: BP 150/59
--- NOTE | 2016-08-05 12:17 | NUR ---
REPORT GIVEN TO ROZINA YANES FROM [facility]. AWARE OF TRANSPORT TIME AT 1500. PT AND DAUGHTER AWARE OF TRANSFER LOCATION AND TIME.
--- NOTE | 2016-08-05 13:16 | NUR ---
DISCHARGE INSTRUCTIONS PROVIDED TO PT AND DAUGHTER, VERBALIZED UNDERSTANDING. DISCHARGE PAPERWORK SIGNED, PROVIDED A COPY. ARM BANDS REMOVED, IV REMOVED AND INTACT. DISCHARGE PHOTOGRAPHS 2/3 TAKEN, PT REFUSED 3RD BUTTOCK WOUND. PT HAS NO S/S OF ACUTE DISTRESS OR DISCOMFORT. DAUGHTER AT BEDSIDE. CALL LIGHT WITHIN REACH, WILL CONTINUE TO MONITOR. AWAITING FOR [facility].
--- NOTE | 2016-08-05 15:11 | NUR ---
PHARMACY CLINICAL COORDINATOR REMOVED AND RETURNED. PT HAD BOWEL MOVEMENT, PT WAS CLEANED. [facility] PRESENT, REPORT GIVEN. AWAITING FOR ADDITIONAL CREW FOR LIFT ASSIST, AWARE OF AVAILABLE [facility] LIFT.
--- NOTE | 2016-08-05 15:40 | NUR ---
PT TRANSFERRED BY [facility] VIA [facility]. PT IN STABLE CONDITION.
== END 2016-08-05 15:40 | DRG 720 ==
LOC: MED 21:10 → MTU 07-26 06:04
PROVIDERS: ADMIT Hospitalist; ATTEND Hospitalist
DX: A41.01 Sepsis due to Methicillin susceptible Staphylococcus aureus (principal); G93.41 Metabolic encephalopathy; R34 Anuria and oliguria; N17.9 Acute kidney failure, unspecified; J18.9 Pneumonia, unspecified organism; E86.1 Hypovolemia; M00.062 Staphylococcal arthritis, left knee; E87.1 Hypo-osmolality and hyponatremia; M19.90 Unspecified osteoarthritis, unspecified site; E66.01 Morbid (severe) obesity due to excess calories; Z68.44 Body mass index [BMI] 60.0-69.9, adult; F33.9 Major depressive disorder, recurrent, unspecified; I12.9 Hypertensive chronic kidney disease with stage 1 through stage 4 chronic kidney disease, or unspecified chronic kidney disease; N18.9 Chronic kidney disease, unspecified; D64.9 Anemia, unspecified; F41.9 Anxiety disorder, unspecified; M71.20 Synovial cyst of popliteal space [Baker], unspecified knee; M25.511 Pain in right shoulder; E88.09 Other disorders of plasma-protein metabolism, not elsewhere classified; N39.0 Urinary tract infection, site not specified; B95.61 Methicillin susceptible Staphylococcus aureus infection as the cause of diseases classified elsewhere; I35.0 Nonrheumatic aortic (valve) stenosis; Z98.890 Other specified postprocedural states